=== PATIENT | female | born 1930 | race Caucasian/White ===

== ENCOUNTER 2016-11-11 13:07 | Emergency (ER) | payer MEDICARE ==
[~2016-11-11] VITALS: Ht 152.4 cm; Wt 63.5 kg
[~2016-11-11 13:07] MED LIST: ALEN1TAB2 PO; ASPI-482 PO; CHOL5POW MC; CITA20TA5 PO; DICL100G7 TP; LISI-338 PO; NAPR220T70 PO; PANT40TA5 PO; PRAV20TA2 PO; RANI150C PO
--- NOTE | 2016-11-11 13:46 | PHYS DOC ---
Adult General Chief Complaint Chief Complaint: ABDOMINAL PAIN HPI HPI Patient is a 86 year old female presents emergency Department 2-3 day history of abdominal pain, nausea, vomiting and diarrhea. Patient denies black, bloody or bilious emesis. She denies black or bloody bowel movements. She relates last by mouth intake was at 10 AM this morning. Patient states that she was able to hold this food down. Patient denies history of chronic gastrointestinal disease. She reports that she did have colon cancer in the late 90s. She reports having a bowel resection at that time with follow-on chemotherapy. She denies any known history of recurrence. Patient also has a history of amyloidosis. She states that she has not had any evidence of organ problems, particularly with her kidneys. Her primary care doctor's Dr. Bustillo. Patient denies known exposure to others with similar symptoms. She denies hospitalization, foreign travel or antibiotic use within the past 90 days. Review of Systems Review of Systems Constitutional: Denies fever or chills [] Eyes: Denies change in visual acuity, redness, or eye pain [] HENT: Denies nasal congestion or sore throat [] Respiratory: Denies cough or shortness of breath [] Cardiovascular: No additional information not addressed in HPI [] GI: Denies abdominal pain, nausea, vomiting, bloody stools or diarrhea [] : Denies dysuria or hematuria [] Musculoskeletal: Denies back pain or joint pain [] Integument: Denies rash or skin lesions [] Neurologic: Denies headache, focal weakness or sensory changes [] Endocrine: Denies polyuria or polydipsia [] Current Medications Current Medications Current Medications Medications (Trade) Dose Ordered Sig/Hayde Start Time Stop Time Status Last Admin Dose Admin Fentanyl Citrate (Fentanyl 2ml Vial) 50 mcg 1X ONCE 11/11/16 14:00 11/11/16 14:01 DC 11/11/16 14:25 50 MCG Info (Do NOT chart on this entry -- for MONITORING) 1 each PRN DAILY PRN 11/11/16 14:45 11/11/16 16:23 DC Iohexol (Omnipaque 300 Mg/ml) 75 ml 1X ONCE 11/11/16 14:45 11/11/16 14:46 DC 11/11/16 14:45 75 ML Ondansetron HCl 4 mg 4 mg 1X ONCE 11/11/16 14:00 11/11/16 14:01 DC 11/11/16 14:24 4 MG Sodium Chloride (Iv Sodium Chloride 0.9% 500ml Bag) 500 ml @ 500 mls/hr 1X ONCE 11/11/16 14:00 11/11/16 14:59 DC Allergies Allergies Allergies Coded Allergies Type Severity Reaction Last Updated Verified Sulfa (Sulfonamide Antibiotics) Allergy Intermediate LIKE BEE BITTES. STINGING 11/11/14 Yes celecoxib Allergy Intermediate IRRITATION OF SKIN. FEEL LIKE BUGS ARE CRAWLING UNDER SKIN 11/11/14 Yes warfarin Allergy Intermediate 11/11/14 Yes cephalexin Adverse Reaction Intermediate SICK 11/11/14 Yes codeine Adverse Reaction Intermediate 11/11/14 Yes ibuprofen Adverse Reaction Intermediate SICK, NAUSEA 11/11/14 Yes iron Adverse Reaction Intermediate VOMITING, STOMACHE PAINS AND SOARS 11/11/14 Yes naproxen Adverse Reaction Intermediate MAKES PT REAL SICK 11/11/14 Yes rofecoxib Adverse Reaction Intermediate REAL SICK 11/11/14 Yes tramadol Adverse Reaction Intermediate DIZZYNESS, NASEA, AND VOMITING 11/11/14 Yes Physical Exam Physical Exam Constitutional: Well developed, well nourished, no acute distress, non-toxic appearance. Very pleasant, older lady in no acute distress. HENT: Normocephalic, atraumatic, bilateral external ears normal, oropharynx moist, no oral exudates, nose normal. [] Eyes: PERRLA, EOMI, conjunctiva normal, no discharge. [] Neck: Normal range of motion, no tenderness, supple, no stridor. [] Cardiovascular:Heart rate regular rhythm, no murmur [] Lungs & Thorax: Bilateral breath sounds clear to auscultation [] Abdomen: Abdomen is soft and nondistended. There are hyperactive bowel sounds in all 4 quadrants. There is no palpable defect to the abdominal wall or pulsatile mass. There is no area of focal tenderness. There is some voluntary guarding with palpation. There is no rebound. Skin: Warm, dry, no erythema, no rash. [] Back: No tenderness, no CVA tenderness. Extremities: No tenderness, no cyanosis, no clubbing, ROM intact, no edema. [] Neurologic: Alert and oriented X 3, normal motor function, normal sensory function, no focal deficits noted. [] Psychologic: Affect normal, judgement normal, mood normal. [] Current Patient Data Vital Signs Vital Signs Date Time Temp Pulse Resp B/P Pulse Ox O2 Delivery O2 Flow Rate FiO2 11/11/16 14:25 Room Air 11/11/16 13:25 98.0 78 28 140/60 93 98.0 Lab Values Laboratory Tests Test 11/11/16 13:25 11/11/16 13:59 Urine Collection Type Unknown Urine Color Brittnee Urine Clarity Cloudy Urine pH 5.0 Urine Specific [place] >=1.030 Urine Protein 100mg/dL (NEG-TRACE) Urine Glucose (UA) Negativemg/dL (NEG) Urine Ketones (Stick) Tracemg/dL (NEG) Urine Blood Large (NEG) Urine Nitrite Negative (NEG) Urine Bilirubin Small (NEG) Urine Urobilinogen Dipstick 1.0mg/dL (0.2 mg/dL) Urine Leukocyte Esterase Small (NEG) Urine RBC 11-20/HPF (0-2) Urine WBC 11-20/HPF (0-4) Urine Squamous Epithelial Cells Mod/LPF Urine Transitional Epithelial Cells Mod/LPF Urine Bacteria Moderate/HPF (0-FEW) Urine Hyaline Casts Many/HPF Urine Granular Casts Occasional/HPF Urine Mucus Mod/LPF White Blood Count 6.0x10^3/uL (4.0-11.0) Red Blood Count 4.70x10^6/uL (3.50-5.40) Hemoglobin 14.6g/dL (12.0-15.5) Hematocrit 44.3% (36.0-47.0) Mean Corpuscular Volume 94fL (79-100) Mean Corpuscular Hemoglobin 31pg (25-35) Mean Corpuscular Hemoglobin Concent 33g/dL (31-37) Red Cell Distribution Width 13.9% (11.5-14.5) Platelet Count 223x10^3/uL (140-400) Neutrophils (%) (Auto) 66% (31-73) Lymphocytes (%) (Auto) 22% (24-48) L Monocytes (%) (Auto) 11% (0-9) H Eosinophils (%) (Auto) 1% (0-3) Basophils (%) (Auto) 0% (0-3) Neutrophils # (Auto) 4.0x10^3uL (1.8-7.7) Lymphocytes # (Auto) 1.3x10^3/uL (1.0-4.8) Monocytes # (Auto) 0.6x10^3/uL (0.0-1.1) Eosinophils # (Auto) 0.0x10^3/uL (0.0-0.7) Basophils # (Auto) 0.0x10^3/uL (0.0-0.2) Sodium Level 139mmol/L (136-145) Potassium Level 4.2mmol/L (3.5-5.1) Chloride Level 103mmol/L (98-107) Carbon Dioxide Level 26mmol/L (21-32) Anion Gap 10 (6-14) Blood Urea Nitrogen 30mg/dL (7-20) H Creatinine 1.3mg/dL (0.6-1.0) H Estimated GFR (Cockcroft-Gault) 38.9 BUN/Creatinine Ratio 23 (6-20) H Glucose Level 143mg/dL (70-99) H Calcium Level 10.1mg/dL (8.5-10.1) Total Bilirubin 1.5mg/dL (0.2-1.0) H Aspartate Amino Transferase (AST) 17U/L (15-37) Alanine Aminotransferase (ALT) 20U/L (14-59) Alkaline Phosphatase 52U/L (46-116) Total Protein 6.9g/dL (6.4-8.2) Albumin 3.6g/dL (3.4-5.0) Albumin/Globulin Ratio 1.1 (1.0-1.7) Lipase 94U/L (73-393) Laboratory Tests 11/11/16 13:59 Laboratory Tests 11/11/16 13:59 EKG EKG [] Radiology/Procedures Radiology/Procedures [facility] [address] [place], [place] [id number] IMAGING REPORT Signed PATIENT: XIANG COONEY ACCOUNT: [id number] : 1930 LOCATION: ER AGE: 86 SEX: F EXAM STATUS: REG ER ORD. PHYSICIAN: ANDREINA CARLSON REASON: diffuse abdominal pain-past hx of colon Ca PROCEDURE: CT ABD PELV W/ IV CONTRST ONLY EXAM: CT abdomen and pelvis with contrast. HISTORY: Diffuse abdominal pain, history of colon cancer status post resection and chemotherapy. TECHNIQUE: Computed tomographic images of the abdomen and pelvis following the intravenous demonstration of 60 cc of Omni 300.. Multiplanar reformatting was performed. One or more of the following individualized dose reduction techniques were utilized for this examination: 1. Automated exposure control 2. Adjustment of the mA and/or kV according to patient size 3. Use of iterative reconstruction technique COMPARISON: None. FINDINGS: Visualized lung bases are clear. A hiatal hernia is present. The liver demonstrates decreased attenuation suggestive of steatosis. No focal liver lesion is seen. The gallbladder, spleen, pancreas, adrenal glands and bilateral kidneys demonstrate no focal abnormality. An ileal bowel loop in the left abdomen is mildly dilated up to 4 cm in diameter, with gradual tapering distally and more inferiorly within the abdomen, with a transition zone seen within the lower abdomen at the midline with a trace amount of fluid suggested. No focal mass is seen. There is mild haziness within the mesentery adjacent to the dilated bowel loop. Normal enhancement of the dilated small bowel loop is maintained. No focal small bowel wall thickening is seen. Remainder of the small bowel loops appear normal in caliber, partially fluid-filled. Anastomotic suture is seen at the level of the rectosigmoid, likely site of previous resection. Remainder of the colon demonstrates no focal abnormality. Abdominal aorta remains normal in caliber with diffuse atherosclerotic calcifications. No intra-abdominal pelvic free air or significant lymphadenopathy is seen. Overlying soft tissues and visualized osseous structures demonstrate no acute or suspicious finding. Midline ventral abdominal wall scar is present, with small fat-containing hernia. Degenerative changes are present throughout the spine as well as osteopenia. IMPRESSION: A single mildly dilated ileal bowel loop is present in the left abdomen with gradual transition zone seen in the lower midline abdomen. Mild haziness of the adjacent mesentery is present. Remainder of the small bowel loops are not dilated. Findings may represent very early obstruction. DICTATED and SIGNED BY: LEWIS MOHAN MD DATE: 11/11/16 3782 CC: ANDREINA CARLSON; MEETA BOTELLO MD; NON,STAFF ~ Course & Med Decision Making Course & Med Decision Making Patient had an uneventful stay here in the emergency department. I reexamined her abdomen and found it to be nontender. She reports feeling "much better", like to go home. Her CT scan shows no evidence of inflammatory bowel condition, tumors or obstructions. Dragon Disclaimer Dragon Disclaimer This electronic medical record was generated, in whole or in part, using a voice recognition dictation system. Departure Departure Impression: Primary Impression: Gastroenteritis Disposition: 01 HOME, SELF-CARE Condition: GOOD Referrals: MEETA BOTELLO MD (PCP) Patient Instructions: Viral Gastroenteritis, [id number] Additional Instructions: 1. Review the discharge instructions provided for self-care and reasons to return to the emergency department. 2. Clear liquids for the next 24 hours, advance to soft foods after that for another 24 hours and then advance to regular diet on the third day. 3. Take the medication as prescribed. 4. Call your primary care doctor's office in the morning to schedule follow-up appointment for reevaluation by Saturday. Scripts Dicyclomine Hcl (Bentyl)10 Mg Capsule1 Cap PO TID abdominal cramping #21 CAP Ref 1 Prov:ANDREINA CARLSON 11/11/16 Ondansetron (Zofran Odt)4 Mg Tab.rapdis1 Tab SL Q8HRS NAUSEA #10 TAB Prov:ANDREINA CARLSON 11/11/16 ANDREINA CARLSON Nov 11, 2016 13:46
[2016-11-11 13:53] LABS: BILIRUBIN,URINE SMALL (NEG); GLUCOSE,URINE NEGATIVE (NEG); NITRITE,URINE NEGATIVE (NEG); PROTEIN,URINE 100 mg/dL (NEG-TRACE)
[2016-11-11] MEDS ORDERED: ONDANSETRON PF 4 MG/2 ML VIAL. IV ONE (14:00)
[2016-11-11] MEDS ORDERED: IV NORMAL SALINE 500ML BAG 500 ML IV ONE ×2 (14:00→16:00)
[2016-11-11] MEDS ORDERED: FENTANYL PF 100 MCG/2 ML VIAL. IV ONE ×2 (14:00→16:00)
[2016-11-11 14:04] LABS: BACTERIA,URINE MODERATE /HPF (0-FEW); SQUAMOUS EPITHELIAL CELL,UR MOD /LPF
[2016-11-11 14:11] VITALS: BP 125/68
[2016-11-11 14:12] LABS: BASO % 0 % (0-3); EOS % 1 % (0-3); HEMATOCRIT 44.3 % (36.0-47.0); HEMOGLOBIN 14.6 g/dL (12.0-15.5); LYMPH # 1.3 x10^3/uL (1.0-4.8); LYMPH % 22 % (24-48); MEAN CORPUSCULAR HEMOGLOBIN 31 pg (25-35); MEAN CORPUSCULAR HGB CONC 33 g/dL (31-37); MEAN CORPUSCULAR VOLUME 94 fL (79-100); MONO % 11 % (0-9); NEUT % 66 % (31-73); PLATELET COUNT 223 x10^3/uL (140-400); RED CELL DISTRIBUTION WIDTH 13.9 % (11.5-14.5)
[2016-11-11 14:14] LABS: CALCIUM 10.1 mg/dL (8.5-10.1); CREATININE 1.3 mg/dL (0.6-1.0); GFR 38.9; POTASSIUM 4.2 mmol/L (3.5-5.1)
[2016-11-11 14:20] LABS: ALBUMIN 3.6 g/dL (3.4-5.0); ALBUMIN/GLOBULIN RATIO 1.1 (1.0-1.7); TOTAL BILIRUBIN 1.5 mg/dL (0.2-1.0); TOTAL PROTEIN 6.9 g/dL (6.4-8.2)
[2016-11-11] MEDS ORDERED: IOHEXOL 300 MG/ML 75 ML VIAL IV ONE (14:45)
[2016-11-11] MEDS ORDERED: CONTRAST GIVEN MC PRN (14:45)
--- NOTE | 2016-11-11 15:16 | RAD ---
EXAM: CT abdomen and pelvis with contrast. HISTORY: Diffuse abdominal pain, history of colon cancer status post resection and chemotherapy. TECHNIQUE: Computed tomographic images of the abdomen and pelvis following the intravenous demonstration of 60 cc of Omni 300.. Multiplanar reformatting was performed. One or more of the following individualized dose reduction techniques were utilized for this examination: 1. Automated exposure control 2. Adjustment of the mA and/or kV according to patient size 3. Use of iterative reconstruction technique COMPARISON: None. FINDINGS: Visualized lung bases are clear. A hiatal hernia is present. The liver demonstrates decreased attenuation suggestive of steatosis. No focal liver lesion is seen. The gallbladder, spleen, pancreas, adrenal glands and bilateral kidneys demonstrate no focal abnormality. An ileal bowel loop in the left abdomen is mildly dilated up to 4 cm in diameter, with gradual tapering distally and more inferiorly within the abdomen, with a transition zone seen within the lower abdomen at the midline with a trace amount of fluid suggested. No focal mass is seen. There is mild haziness within the mesentery adjacent to the dilated bowel loop. Normal enhancement of the dilated small bowel loop is maintained. No focal small bowel wall thickening is seen. Remainder of the small bowel loops appear normal in caliber, partially fluid-filled. Anastomotic suture is seen at the level of the rectosigmoid, likely site of previous resection. Remainder of the colon demonstrates no focal abnormality. Abdominal aorta remains normal in caliber with diffuse atherosclerotic calcifications. No intra-abdominal pelvic free air or significant lymphadenopathy is seen. Overlying soft tissues and visualized osseous structures demonstrate no acute or suspicious finding. Midline ventral abdominal wall scar is present, with small fat-containing hernia. Degenerative changes are present throughout the spine as well as osteopenia. IMPRESSION: A single mildly dilated ileal bowel loop is present in the left abdomen with gradual transition zone seen in the lower midline abdomen. Mild haziness of the adjacent mesentery is present. Remainder of the small bowel loops are not dilated. Findings may represent very early obstruction.
[2016-11-11] MEDS ORDERED: DICY10CA53 PO (15:31)
[2016-11-11] MEDS ORDERED: ONDA4TAB10 SL (15:31)
--- NOTE | 2016-11-15 08:52 | VNOTE ---
CALL BACK NOTE CALL BACK Microbiology 11/11/16 Urine Culture - Final, Complete 11/11/16 Urine Culture Result 1 (HANH) - Final, Complete 11/11/16 Antimicrobic Susceptibility - Final, Complete Patient's urine was positive for Klebsiella pneumoniae. Patient was notified with a prescription of Augmentin called [facility] Patient is aware that the prescription is being called in. ALDO CURRIE APRN Nov 15, 2016 08:52
== END 2016-11-11 16:06 | disposition home or self-care (01) ==
LOC: ER 13:07
DX: Z88.2 Allergy status to sulfonamides (principal); Z88.8 Allergy status to other drugs, medicaments and biological substances; Z88.5 Allergy status to narcotic agent; Z88.6 Allergy status to analgesic agent; Z85.038 Personal history of other malignant neoplasm of large intestine; Z90.49 Acquired absence of other specified parts of digestive tract
CPT/HCPCS: 36415; 74177; 80053; 81001; 83690; 85027; 87086; 96374; 96375; 99285; J2405; J3010; Q9967

== ENCOUNTER → 2017-01-09 | Outpatient (CLI) | payer MEDICARE ==
[~2017-01-09] MED LIST changes: +DICL100G18 TP; -DICL100G7 TP; +DICY10CA53 PO; +ONDA4TAB10 SL
--- NOTE | 2017-01-09 14:56 | RAD ---
Ultrasound of the right upper quadrant abdomen 01/09/2017 Clinical history: Right upper quadrant abdominal pain with nausea and vomiting. Technique: A real-time ultrasound examination of the right upper quadrant of the abdomen was performed. Multiple images were obtained. Findings: Comparison is made to patient's CT scan of the abdomen dated 11/11/2016. The gallbladder is distended. No gallstones are visualized. The gallbladder wall thickness is within normal limits. No pericholecystic fluid is seen. The common bile duct measures 9 mm in diameter which is within normal limits given the patient's age. The liver is normal in size measuring 15.3 cm in length. Increased echogenicity of the liver parenchyma is seen consistent with fatty infiltration. No significant focal abnormality of the liver is noted. The visualized portions of the pancreas and right kidney are within normal limits. Impression: 1. Mild fatty infiltration of the liver. 2. Otherwise negative study.
== END | disposition home or self-care (01) ==
LOC: US 13:13
PROVIDERS: ATTEND Family Medicine
DX: R10.11 Right upper quadrant pain (principal); R14.0 Abdominal distension (gaseous)
CPT/HCPCS: 76705

== ENCOUNTER → 2017-10-03 | Outpatient (CLI) | payer MEDICARE | END | disposition home or self-care (01) | LOC: NM 11:13 | DX: E83.52 Hypercalcemia (principal); Z85.828 Personal history of other malignant neoplasm of skin | CPT/HCPCS: 78306; 96374; A9503 ==

== ENCOUNTER → 2017-10-09 | Outpatient (CLI) | payer MEDICARE ==
[2017-10-09] MEDS: GADOBUTROL 7.5 MMOL/7.5 ML VIAL IV (15:19)
== END | disposition home or self-care (01) ==
LOC: MRI 14:24
DX: R41.0 Disorientation, unspecified (principal); H74.8X3 Other specified disorders of middle ear and mastoid, bilateral
CPT/HCPCS: 70553; A9585

== ENCOUNTER 2018-03-09 17:27 | Emergency (ER) | payer MEDICARE ==
[~2018-03-09] VITALS: Ht 152.4 cm; Wt 63.5 kg
[~2018-03-09 17:27] MED LIST changes: -CITA20TA5 PO; +CITA20TA6 PO
[2018-03-09] MEDS ORDERED: IV NORMAL SALINE 1000ML BAG 1,000 ML IV ONE (18:30)
[2018-03-09 18:33] LABS: BASO % 0 % (0-3); EOS # 0.1 x10^3/uL (0.0-0.7); EOS % 1 % (0-3); HEMATOCRIT 42.6 % (36.0-47.0); LYMPH # 1.5 x10^3/uL (1.0-4.8); LYMPH % 18 % (24-48); MEAN CORPUSCULAR HEMOGLOBIN 30 pg (25-35); MEAN CORPUSCULAR HGB CONC 33 g/dL (31-37); MEAN CORPUSCULAR VOLUME 91 fL (79-100); MONO # 0.5 x10^3/uL (0.0-1.1); MONO % 5 % (0-9); NEUT # 6.5 x10^3uL (1.8-7.7); NEUT % 76 % (31-73); PLATELET COUNT 266 x10^3/uL (140-400); RED BLOOD COUNT 4.67 x10^6/uL (3.50-5.40); RED CELL DISTRIBUTION WIDTH 15.1 % (11.5-14.5); WHITE BLOOD COUNT 8.6 x10^3/uL (4.0-11.0)
[2018-03-09 18:44] LABS: CALCIUM 10.4 mg/dL (8.5-10.1); CREATININE 1.1 mg/dL (0.6-1.0)
[2018-03-09 18:50] LABS: ALBUMIN 3.3 g/dL (3.4-5.0); ALBUMIN/GLOBULIN RATIO 0.9 (1.0-1.7); TOTAL BILIRUBIN 0.9 mg/dL (0.2-1.0); TOTAL PROTEIN 6.8 g/dL (6.4-8.2)
[2018-03-09 19:33] LABS: BILIRUBIN,URINE SMALL (NEG); CLARITY,URINE TURBID; NITRITE,URINE POSITIVE (NEG); PH,URINE 5.5; PROTEIN,URINE >=300 mg/dL (NEG-TRACE); UROBILINOGEN,URINE 0.2 mg/dL (0.2 mg/dL)
[2018-03-09 19:41] LABS: COLOR,URINE DK YELLOW
[2018-03-09 19:43] LABS: BACTERIA,URINE MANY /HPF (0-FEW); RBC,URINE OCC /HPF (0-2); SQUAMOUS EPITHELIAL CELL,UR FEW /LPF
--- NOTE | 2018-03-09 19:50 | RAD ---
CT abdomen and pelvis without contrast: Reason for examination: Diffuse abdominal pain. History of diverticulosis. Comparison is made to previous study dated 11/11/2016. Helical images were obtained through the abdomen and pelvis with no intravenous or oral contrast administered. Reconstruction was performed in sagittal and coronal plane. Exposure: One or more of the following individualized dose reduction techniques were utilized for this examination: 1. Automated exposure control 2. Adjustment of the mA and/or kV according to patient size 3. Use of iterative reconstruction technique. There is a calcified granuloma present at the left lung base. No infiltrates or pleural effusions are seen seen. The heart size is normal with no pericardial effusion. No abnormality seen at the liver. The spleen shows splenic granuloma. No abnormalities are seen at the adrenal glands, gallbladder or pancreas. The abdominal aorta shows arteriosclerotic vascular calcification but no aneurysmal dilatation or dissection is seen. No abnormality seen at the inferior vena cava. There is a moderate size hiatal hernia. The small intestinal tract shows no abnormally dilated loops of bowel or thickened bowel. No abnormality seen at the appendix. The colon shows no evidence of diverticulosis or diverticulitis. There are postop changes with anastomosis at the rectosigmoid junction which is unchanged. The kidneys show no renal masses, renal calculi, hydronephrosis or evidence of obstructive uropathy. The bladder is not distended. No abnormality seen at the vaginal cuff. There is no evidence of free fluid or free air in the abdomen or pelvis. There are degenerative changes in the lower lumbar spine. No acute bony abnormalities are seen. IMPRESSION: Moderate sized hiatal hernia. Postop changes at the rectosigmoid junction. No evidence of diverticulosis or diverticulitis. No other focal abnormality seen in the abdomen or pelvis. Electronically signed by: Katey Trejo MD (03/09/2018 7:46 PM) [facility]
[2018-03-09 21:35] VITALS: BP 115/74
[2018-03-09] MEDS ORDERED: CIPR500T PO (21:38)
[2018-03-09] MEDS ORDERED: ONDA4TAB12 PO (21:38)
--- NOTE | 2018-03-09 21:38 | PHYS DOC ---
Past Medical History Past Medical History: Cancer, Other Additional Past Medical Histor: colon CA, primary amiliodosis Past Surgical History: Cancer Surgery, Hysterectomy, Knee Replacement Additional Past Surgical Histo: back, throat Alcohol Use: None Drug Use: None Adult General Chief Complaint Chief Complaint: ABDOMINAL PAIN HPI HPI Patient is a 88 year old [f__sex] who presents with [] Review of Systems Review of Systems Constitutional: Denies fever or chills [] Eyes: Denies change in visual acuity, redness, or eye pain [] HENT: Denies nasal congestion or sore throat [] Respiratory: Denies cough or shortness of breath [] Cardiovascular: No additional information not addressed in HPI [] GI: Denies abdominal pain, nausea, vomiting, bloody stools or diarrhea [] : Denies dysuria or hematuria [] Musculoskeletal: Denies back pain or joint pain [] Integument: Denies rash or skin lesions [] Neurologic: Denies headache, focal weakness or sensory changes [] Endocrine: Denies polyuria or polydipsia [] All other systems were reviewed and found to be within normal limits, except as documented in this note. Current Medications Current Medications Current Medications Medications (Trade) Dose Ordered Sig/Hayde Start Time Stop Time Status Last Admin Dose Admin Ceftriaxone Sodium 50 ml @ 100 mls/hr 1X ONCE 03/09/18 20:00 03/09/18 20:29 DC 03/09/18 20:38 100 MLS/HR Sodium Chloride 1,000 ml @ 1,000 mls/hr 1X ONCE 03/09/18 18:30 03/09/18 19:29 DC 03/09/18 19:11 1,000 MLS/HR Allergies Allergies Allergies Coded Allergies Type Severity Reaction Last Updated Verified Sulfa (Sulfonamide Antibiotics) Allergy Intermediate LIKE BEE BITTES. STINGING 11/11/14 Yes celecoxib Allergy Intermediate IRRITATION OF SKIN. FEEL LIKE BUGS ARE CRAWLING UNDER SKIN 11/11/14 Yes warfarin Allergy Intermediate 11/11/14 Yes cephalexin Adverse Reaction Intermediate SICK 11/11/14 Yes codeine Adverse Reaction Intermediate 11/11/14 Yes ibuprofen Adverse Reaction Intermediate SICK, NAUSEA 11/11/14 Yes iron Adverse Reaction Intermediate VOMITING, STOMACHE PAINS AND SOARS 11/11/14 Yes naproxen Adverse Reaction Intermediate MAKES PT REAL SICK 11/11/14 Yes rofecoxib Adverse Reaction Intermediate REAL SICK 11/11/14 Yes tramadol Adverse Reaction Intermediate DIZZYNESS, NASEA, AND VOMITING 11/11/14 Yes Uncoded Allergies Type Severity Reaction Last Updated Verified PCN Allergy Mild unsure 11/15/16 Physical Exam Physical Exam Constitutional: Well developed, well nourished, no acute distress, non-toxic appearance. [] HENT: Normocephalic, atraumatic, bilateral external ears normal, oropharynx moist, no oral exudates, nose normal. [] Eyes: PERRLA, EOMI, conjunctiva normal, no discharge. [] Neck: Normal range of motion, no tenderness, supple, no stridor. [] Cardiovascular:Heart rate regular rhythm, no murmur [] Lungs & Thorax: Bilateral breath sounds clear to auscultation [] Abdomen: Bowel sounds normal, soft, no tenderness, no masses, no pulsatile masses. [] Skin: Warm, dry, no erythema, no rash. [] Back: No tenderness, no CVA tenderness. [] Extremities: No tenderness, no cyanosis, no clubbing, ROM intact, no edema. [] Neurologic: Alert and oriented X 3, normal motor function, normal sensory function, no focal deficits noted. [] Psychologic: Affect normal, judgement normal, mood normal. [] Current Patient Data Vital Signs Vital Signs Date Time Temp Pulse Resp B/P (MAP) Pulse Ox O2 Delivery O2 Flow Rate FiO2 03/09/18 20:38 62 20 167/67 (100) 96 Room Air 03/09/18 17:45 98.4 98.4 Lab Values Laboratory Tests Test 03/09/18 17:40 03/09/18 19:20 White Blood Count 8.6 x10^3/uL (4.0-11.0) Red Blood Count 4.67 x10^6/uL (3.50-5.40) Hemoglobin 14.0 g/dL (12.0-15.5) Hematocrit 42.6 % (36.0-47.0) Mean Corpuscular Volume 91 fL (79-100) Mean Corpuscular Hemoglobin 30 pg (25-35) Mean Corpuscular Hemoglobin Concent 33 g/dL (31-37) Red Cell Distribution Width 15.1 % (11.5-14.5) H Platelet Count 266 x10^3/uL (140-400) Neutrophils (%) (Auto) 76 % (31-73) H Lymphocytes (%) (Auto) 18 % (24-48) L Monocytes (%) (Auto) 5 % (0-9) Eosinophils (%) (Auto) 1 % (0-3) Basophils (%) (Auto) 0 % (0-3) Neutrophils # (Auto) 6.5 x10^3uL (1.8-7.7) Lymphocytes # (Auto) 1.5 x10^3/uL (1.0-4.8) Monocytes # (Auto) 0.5 x10^3/uL (0.0-1.1) Eosinophils # (Auto) 0.1 x10^3/uL (0.0-0.7) Basophils # (Auto) 0.0 x10^3/uL (0.0-0.2) Sodium Level 139 mmol/L (136-145) Potassium Level 4.0 mmol/L (3.5-5.1) Chloride Level 104 mmol/L (98-107) Carbon Dioxide Level 24 mmol/L (21-32) Anion Gap 11 (6-14) Blood Urea Nitrogen 17 mg/dL (7-20) Creatinine 1.1 mg/dL (0.6-1.0) H Estimated GFR (Cockcroft-Gault) 47.0 BUN/Creatinine Ratio 15 (6-20) Glucose Level 128 mg/dL (70-99) H Calcium Level 10.4 mg/dL (8.5-10.1) H Total Bilirubin 0.9 mg/dL (0.2-1.0) Aspartate Amino Transferase (AST) 19 U/L (15-37) Alanine Aminotransferase (ALT) 25 U/L (14-59) Alkaline Phosphatase 72 U/L (46-116) Total Protein 6.8 g/dL (6.4-8.2) Albumin 3.3 g/dL (3.4-5.0) L Albumin/Globulin Ratio 0.9 (1.0-1.7) L Lipase 168 U/L (73-393) Urine Collection Type Unknown Urine Color Dk yellow Urine Clarity Turbid Urine pH 5.5 Urine Specific [place] >=1.030 Urine Protein >=300 mg/dL (NEG-TRACE) Urine Glucose (UA) Negative mg/dL (NEG) Urine Ketones (Stick) Trace mg/dL (NEG) Urine Blood Large (NEG) Urine Nitrite Positive (NEG) Urine Bilirubin Small (NEG) Urine Urobilinogen Dipstick 0.2 mg/dL (0.2 mg/dL) Urine Leukocyte Esterase Small (NEG) Urine RBC Occ /HPF (0-2) Urine WBC 11-20 /HPF (0-4) Urine Squamous Epithelial Cells Few /LPF Urine Bacteria Many /HPF (0-FEW) Urine Mucus Slight /LPF Laboratory Tests 03/09/18 17:40 Laboratory Tests 03/09/18 17:40 EKG EKG [] Radiology/Procedures Radiology/Procedures [] Course & Med Decision Making Course & Med Decision Making Pertinent Labs and Imaging studies reviewed. (See chart for details) [] Dragon Disclaimer Dragon Disclaimer This electronic medical record was generated, in whole or in part, using a voice recognition dictation system. Departure Departure Impression: Primary Impression: Gastroenteritis Additional Impression: Urinary tract infection Disposition: HOME, SELF-CARE Condition: STABLE Referrals: MIGUEL CRUZ MD (PCP) Patient Instructions: Nausea and Vomiting, [id number], Urinary Tract Infection, Child Additional Instructions: Fill your prescriptions and use as directed. Clear liquids for the first 24 hours then advance her diet as tolerated to bland foods like bananas, applesauce , rice, and toast. Avoid spicy foods, caffeine, carbonated drinks the will irritate your bladder. Follow-up with your doctor on Saturday as already scheduled. Return to the ER if your symptoms worsen. Scripts Ciprofloxacin Hcl (CIPROFLOXACIN HCL) 500 Mg Tablet 1 TAB PO BID for 7 Days, #14 TAB 0 Refills Prov: JUDITH RGEEN APRN 03/09/18 Ondansetron (ONDANSETRON ODT) 4 Mg Tab.rapdis 1 TAB PO PRN Q6-8HRS PRN for NAUSEA/VOMITING for 3 Days, #12 TAB 0 Refills Prov: JUDITH GREEN APRN 03/09/18 Problem Qualifiers Additional Impression: Urinary tract infection Urinary tract infection type: site unspecified Hematuria presence: with hematuria Qualified Codes: N39.0 - Urinary tract infection, site not specified ; R31.9 - Hematuria, unspecified JUDITH GREEN APRN Mar 09, 2018 21:38
--- NOTE | 2018-03-10 06:40 | EKG ---
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
== END 2018-03-09 21:55 | disposition home or self-care (01) ==
LOC: ER 17:27
DX: K52.9 Noninfective gastroenteritis and colitis, unspecified (principal); N39.0 Urinary tract infection, site not specified; Z90.710 Acquired absence of both cervix and uterus; Z98.890 Other specified postprocedural states; Z88.1 Allergy status to other antibiotic agents; Z88.2 Allergy status to sulfonamides; Z88.5 Allergy status to narcotic agent; Z88.6 Allergy status to analgesic agent; Z88.8 Allergy status to other drugs, medicaments and biological substances
CPT/HCPCS: 36415; 74176; 80053; 81001; 83690; 85025; 87086; 87186; 93005; 96361; 96365; 99285; J0690; J7030

== ENCOUNTER → 2018-03-14 | Outpatient (CLI) | payer MEDICARE ==
[2018-03-09 21:35] VITALS: BP 115/74
[~2018-03-14] MED LIST changes: +CIPR500T PO; +ONDA4TAB12 PO; +PERFLUTREN PROTEIN-A MICROSPHR 0.22 MG/ML 3 ML VIAL. IV PRN; +REGADENOSON 0.4 MG/5 ML DISP.SYRIN. IV ONE
--- NOTE | 2018-03-14 11:58 | CARD ---
MR#: [id number] Date of Study: 03/14/2018 Ordering Physician: GALI HENSON, Referring Physician: GALI HENSON, Tech: Deirdre Esetban SHAYLA APPROVED REPORT EXAM: Two-dimensional and M-mode echocardiogram with Doppler and color Doppler. Other Information Quality : Good INDICATION Murmur 2D DIMENSIONS RVDd2.5 (2.9-3.5cm)Left Atrium(2D)4.1 (1.6-4.0cm) IVSd0.9 (0.7-1.1cm)Aortic Root(2D)2.9 (2.0-3.7cm) LVDd4.9 (3.9-5.9cm)LVOT Diameter2.0 (1.8-2.4cm) PWd1.0 (0.7-1.1cm)LVDs3.2 (2.5-4.0cm) FS (%) 34.6 %SV70.7 ml LVEF(%)60.0 (>50%) Aortic Valve AoV Peak Robby.116.7cm/sAoV VTI27.3cm AO Peak GR.5.4mmHgLVOT VTI 21.95cm AO Mean GR.3mmHgAVA (VTI)2.60cm2 AI P 1/2 Uhmx211on Mitral Valve MV E Orkzefvw95.1cm/sMV DECEL KSRW002zd MV A Jmunlmjr69.2cm/sE/A Ratio0.6 TDI Lateral E' P. V3.86cm/sMedial E' P. V4.25cm/s E/Lateral E'11.9E/Medial E'10.8 Tricuspid Valve TR P. Tbofnllz512oc/sRAP MYBIAPYO7dqSr TR Peak Gr.73dhKbUNDS49keBv Pulmonary Vein S1 Buksbbld47.2cm/sS2 Ntvkhaxv69.65cm/s D2 Anilqcvo37.6cm/s LEFT VENTRICLE The left ventricle is normal size. There is normal left ventricular wall thickness. The left ventricu lar systolic function is normal and the ejection fraction is within normal range. The Ejection Fracti on is 55-60%. There is normal LV segmental wall motion. Transmitral Doppler flow pattern is Grade I-a bnormal relaxation pattern. RIGHT VENTRICLE The right ventricle is normal size. The right ventricular systolic function is normal. ATRIA The left atrium is mildly dilated. The right atrium size is normal. The interatrial septum is intact with no evidence for an atrial septal defect or patent foramen ovale as noted on 2-D or Doppler imagi ng. AORTIC VALVE The aortic valve is calcified but opens well. Doppler and Color Flow revealed mild aortic regurgitati on. There is no significant aortic valvular stenosis. MITRAL VALVE The mitral valve is calcified but opens well. There is no evidence of mitral valve prolapse. There is no mitral valve stenosis. Doppler and Color-flow revealed trace to mild mitral regurgitation. TRICUSPID VALVE The tricuspid valve is normal in structure and function. Doppler and Color Flow revealed trace tricus pid regurgitation. The PA pressure was estimated at 29 mmHg. There is no tricuspid valve stenosis. PULMONIC VALVE The pulmonic valve is not well visualized. Doppler and Color Flow revealed trace to mild pulmonic lilli vular regurgitation. There is no pulmonic valvular stenosis. GREAT VESSELS The aortic root is normal in size. The ascending aorta is normal in size. The IVC is normal in size a nd collapses >50% with inspiration. PERICARDIAL EFFUSION There is no evidence of significant pericardial effusion. Critical Notification Critical Value: No <Conclusion> The left ventricular systolic function is normal and the ejection fraction is within normal range. Th e Ejection Fraction is 55-60%. There is normal LV segmental wall motion. Doppler and Color Flow revealed mild aortic regurgitation. Signed by : Alexander Crenshaw, Electronically Approved : 03/14/2018 11:57:12
--- NOTE | 2018-03-14 13:30 | RAD ---
MR#: [id number] Date of Study: 03/14/2018 Ordering Physician: GALI HENSON, Referring Physician: ALEJANDRA WHITING Tech: KAREEN Storey APPROVED REPORT Test Type: Pharmacological Stress Nurse/Tech: Daisy Ochoa R.N. 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 Informed consent was witnessed. Augustus eout was entered into [employer]. History and Stress Test performed by KAREEN Storey Pharm. Details Pharmacologic stress testing was performed using 0.4mg per 5ml of regadenoson given intravenously ove r 7-10 seconds. Stress Symptoms No chest pain or symptoms. POST EXERCISE Reason for Termination: Infusion complete Target HR: No Max HR: 64 bpm Max Blood Pressure: 173/60mmHg Chest Pain: No. Arrhythmia: No. ST Change: No. INTERPRETATION Stress EKG Conclusion: Baseline EKG showed sinus rhythm. No ischemic changes at peak stress. No arr hythmias. Imaging Protocol IMAGE PROTOCOL: Rest Tc-99m/stress Tc-99m 1 day Rest: Stress: Viability: Radiopharm.Tc99m RtihsnokzMe78u Sestamibi Dose11.3mCi 33.3mCi Duration 17min. 12min. Img Date 03/14/2018 03/14/2018 Inj-Img Ybuf46nmy. 60min. Rest Admin Site:IV - Right WristAdministrator:KAREEN Storey Stress Admin Site: IV - Right WristAdministrator: KAREEN Storey STRESS DATA End Diast. Vol.94.0mlLVEDV index BSA58.0ml End Syst. Vol.35.0mlLVESV index BSA22.0ml Myocardial Trjl811.0gEject. Ucatkmjg47.0% Stress Scores Regional WT1.00Summed WT1.00 Regional WM0.00Summed WM10.00 Study quality was good. Left Ventricular size was Normal at Rest and Stress. Lung uptake was Normal. Left Ventricular ejection fraction is 63%. The rest and stress images show normal perfusion, normal contraction and thickening. LV Perf. Quant 17 Seg. SSS1.00 17 Seg. SRS0.00 17 Seg. SDS1.00 Stress Defect Extent (% LAD)0.00Rest Defect Extent (% LAD)0.00Rev. Defect Extent (% LAD)0.00 Stress Defect Extent (% LCX) 8.80Rest Defect Extent (% LCX)5.00Rev. Defect Extent (% LCX)1.30 Stress Defect Extent (% RCA)0.00Rest Defect Extent (% RCA)0.00Rev. Defect Extent (% RCA)0.00 Stress Defect Extent (% QUETA)2.80Rest Defect Extent (% QUETA)1.10Rev. Defect Extent (% QUETA)0.20 Conclusion 1. Regadenoson cardioisotope stress test did not show any evidence of ischemia or infarct. 2. Normal left ventricular systolic function with ejection fraction calculated at 63%. 3. Low risk for cardiac events. Signed by : Juan Cespedes, Electronically Approved : 03/14/2018 13:28:31
== END | disposition home or self-care (01) ==
LOC: NM 14:08
PROVIDERS: ATTEND Internal Medicine Cardiovascular Disease
DX: I35.1 Nonrheumatic aortic (valve) insufficiency (principal); R53.83 Other fatigue; Z90.49 Acquired absence of other specified parts of digestive tract
CPT/HCPCS: 78452; 93017; 93306; 96374; 96375; 96376; A9500; J2785

== ENCOUNTER 2018-09-13 13:27 | Emergency (ER) | payer MEDICARE ==
[~2018-09-13] VITALS: Ht 172.7 cm; Wt 63.5 kg
[~2018-09-13 13:27] MED LIST changes: -PERFLUTREN PROTEIN-A MICROSPHR 0.22 MG/ML 3 ML VIAL. IV PRN; -REGADENOSON 0.4 MG/5 ML DISP.SYRIN. IV ONE
[2018-09-13 15:00] VITALS: BP 144/65
[2018-09-13] MEDS ORDERED: BUTA1TAB23 PO (15:34)
--- NOTE | 2018-09-13 15:34 | PHYS DOC ---
Past Medical History Past Medical History: Cancer, Other Additional Past Medical Histor: colon CA, primary amiliodosis Past Surgical History: Cancer Surgery, Hysterectomy, Knee Replacement Additional Past Surgical Histo: back, throat Smoking: Quit Greater Than 1 Year Alcohol Use: None Drug Use: None Adult General Chief Complaint Chief Complaint: HEADACHE HPI HPI 88 y/o female presents with report of headache x 5 days. Reports started after accidentally rolling out of bed on 09/08/18 at 0900. Reports she got "too close to the edge" and just fell. Reports striking the right side of her head on the nightstand. Denies LOC. Reports some associated neck pain. Reports she had some nausea and vomiting which started on 09/09/18. Reports N/V currently resolved. Reports use of 81mg ASA daily. Denies other blood thinners. Review of Systems Review of Systems Constitutional: Denies fever or chills [] Eyes: Denies change in visual acuity, redness, or eye pain [] HENT: Denies nasal congestion or epistaxis Respiratory: Denies cough or shortness of breath [] Cardiovascular: Denies chest pain or palpitations GI: Denies abdominal pain or diarrhea; reports nausea and vomiting : Denies dysuria or hematuria [] Musculoskeletal: Denies back pain; reports neck pain Integument: Denies rash or laceration; reports head contusion Neurologic: Reports headache; denies focal weakness or sensory changes [] Complete systems were reviewed and found to be within normal limits, except as documented in this note. Current Medications Current Medications Current Medications Medications (Trade) Dose Ordered Sig/Hayde Start Time Stop Time Status Last Admin Dose Admin Acetaminophen/ Butalbital/ Caffeine (Fioricet) 2 tab 1X ONCE 09/13/18 16:00 09/13/18 16:02 DC 09/13/18 15:47 2 TAB Allergies Allergies Allergies Coded Allergies Type Severity Reaction Last Updated Verified Sulfa (Sulfonamide Antibiotics) Allergy Intermediate LIKE BEE BITTES. STINGING 11/11/14 Yes celecoxib Allergy Intermediate IRRITATION OF SKIN. FEEL LIKE BUGS ARE CRAWLING UNDER SKIN 11/11/14 Yes warfarin Allergy Intermediate 11/11/14 Yes cephalexin Adverse Reaction Intermediate SICK 11/11/14 Yes codeine Adverse Reaction Intermediate 11/11/14 Yes ibuprofen Adverse Reaction Intermediate SICK, NAUSEA 11/11/14 Yes iron Adverse Reaction Intermediate VOMITING, STOMACHE PAINS AND SOARS 11/11/14 Yes naproxen Adverse Reaction Intermediate MAKES PT REAL SICK 11/11/14 Yes rofecoxib Adverse Reaction Intermediate REAL SICK 11/11/14 Yes tramadol Adverse Reaction Intermediate DIZZYNESS, NASEA, AND VOMITING 11/11/14 Yes Uncoded Allergies Type Severity Reaction Last Updated Verified PCN Allergy Mild unsure 11/15/16 Physical Exam Physical Exam Constitutional: Well developed, well nourished, no acute distress, non-toxic appearance. [] HENT: Normocephalic, atraumatic, bilateral TMs normal, oropharynx moist Eyes: PERRL, EOMI, conjunctiva normal, no discharge. [] Neck: Normal range of motion, no midline tenderness, right paraspinal tenderness noted Cardiovascular: Heart rate regular rhythm Lungs & Thorax: Bilateral breath sounds clear to auscultation [] Abdomen: Soft, no tenderness, pelvis stable and nontender Skin: Warm, dry, no erythema Back: No midline tenderness, no CVA tenderness. [] Extremities: No tenderness, no deformity, ROM intact Neurologic: Alert and oriented X 3, normal motor function, normal sensory function, no focal deficits noted. [] Psychologic: Affect normal, judgement normal, mood normal. [] Current Patient Data Vital Signs EKG EKG @1413 NSR at 62bpm, NO ST elevation, incomplete RBBB, nonspecific t wave inversion V1-V2 Radiology/Procedures Radiology/Procedures PROCEDURE: CT HEAD AND CERVICAL SPINE WO Examination: CT HEAD AND CERVICAL SPINE WO History: head/neck pain after fall Comparison/Correlation: None Findings: Axial images of the head and cervical spine were obtained without contrast. Sagittal and coronal reformatted images of the cervical spine were obtained. Ventricles are normal size. Atrophy is present. 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 No midline shift or mass effect. Postoperative cervical spine fusion is noted with plate and screws from C4 to C6. Intervertebral disc spacer material at C3-4 and C4-5 noted. Alignment is normal. Significant disc space narrowing at C2-3 and C5-6 evident. Severe neural foraminal stenosis due to bony encroachment is evident at C5-6 bilaterally. No fracture or malalignment. Soft tissues of neck are unremarkable. Visualized lung apices are unremarkable. Impression: No intracranial hemorrhage. No fracture or bony destruction. Degenerative changes of the cervical spine. Postoperative findings. PQRS Compliance Statement: One or more of the following individualized dose reduction techniques were utilized for this examination: 1. Automated exposure control 2. Adjustment of the mA and/or kV according to patient size 3. Use of iterative reconstruction technique Electronically signed by: Isaac Ingram MD (09/13/2018 4:05 PM) [facility] Course & Med Decision Making Course & Med Decision Making Pertinent Labs and Imaging studies reviewed. (See chart for details) Elderly patient presents with report of continued headache s/p blunt head trauma after accidentally rolling out of bed on 09/08/18. Reports use of 81mg ASA. Patient neurologically intact. NO clinical signs of skull fracture. NO midline cervical spine tenderness. CT head/cervical spine negative for acute process. EKG and orthostatic VS stable. Symptomatic treatment provided with interval im provement. Patient stable for discharge home with outpatient follow-up with PCP. Discussed findings and plan with patient and family, who acknowledge understanding and agreement. Dragon Disclaimer Dragon Disclaimer This electronic medical record was generated, in whole or in part, using a voice recognition dictation system. Departure Departure Impression: Primary Impression: Fall Additional Impressions: Head contusion Headache Cervical muscle strain Disposition: HOME, SELF-CARE Condition: STABLE Referrals: MIGUEL CRUZ MD (PCP) Patient Instructions: Cervical Strain and Sprain with Rehab-SportsMed, Head Injury, Adult, Gxqo-yc-Bxjc Scripts Orphenadrine Citrate (ORPHENADRINE CITRATE) 100 Mg Tablet.er 1 TAB PO BID PRN for MUSCLE PAIN, #14 TAB 0 Refills Prov: WAGNER CONN DO 09/13/18 Butalb/Acetaminophen/Caffeine (OGMEYK-PDMSIMCC-YBXR 50-325-40) 1 Each Tablet 1 EACH PO Q6HRS PRN for HEADACHE, #14 TAB Prov: WAGNER CONN DO 09/13/18 Problem Qualifiers Primary Impression: Fall Encounter type: initial encounter Qualified Codes: W19.XXXA - Unspecified fall, initial encounter Additional Impressions: Head contusion Encounter type: initial encounter Contusion of head detail: scalp Qualified Codes: S00.03XA - Contusion of scalp, initial encounter Headache Headache type: unspecified Headache chronicity pattern: acute headache Intractability: intractable Qualified Codes: R51 - Headache Cervical muscle strain Encounter type: initial encounter Qualified Codes: S16.1XXA - Strain of muscle, fascia and tendon at neck level, initial encounter WAGNER CONN DO Sep 13, 2018 15:34
[2018-09-13] MEDS ORDERED: BUTALB/APAP/CAFEIN 50/325/40MG TABLET. PO ONE (16:00)
--- NOTE | 2018-09-13 16:08 | RAD ---
Examination: CT HEAD AND CERVICAL SPINE WO History: head/neck pain after fall Comparison/Correlation: None Findings: Axial images of the head and cervical spine were obtained without contrast. Sagittal and coronal reformatted images of the cervical spine were obtained. Ventricles are normal size. Atrophy is present. 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 No midline shift or mass effect. Postoperative cervical spine fusion is noted with plate and screws from C4 to C6. Intervertebral disc spacer material at C3-4 and C4-5 noted. Alignment is normal. Significant disc space narrowing at C2-3 and C5-6 evident. Severe neural foraminal stenosis due to bony encroachment is evident at C5-6 bilaterally. No fracture or malalignment. Soft tissues of neck are unremarkable. Visualized lung apices are unremarkable. Impression: No intracranial hemorrhage. No fracture or bony destruction. Degenerative changes of the cervical spine. Postoperative findings. PQRS Compliance Statement: One or more of the following individualized dose reduction techniques were utilized for this examination: 1. Automated exposure control 2. Adjustment of the mA and/or kV according to patient size 3. Use of iterative reconstruction technique Electronically signed by: Isaac Ingram MD (09/13/2018 4:05 PM) [facility]
[2018-09-13] MEDS ORDERED: ORPH100T PO (16:19)
--- NOTE | 2018-09-15 13:55 | EKG ---
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
== END 2018-09-13 17:23 | disposition home or self-care (01) ==
LOC: ER 13:27
DX: S16.1XXA Strain of muscle, fascia and tendon at neck level, initial encounter (principal); S00.03XA Contusion of scalp, initial encounter; R51 Headache; I45.10 Unspecified right bundle-branch block; Z88.1 Allergy status to other antibiotic agents; Z88.2 Allergy status to sulfonamides; Z88.6 Allergy status to analgesic agent; Z88.5 Allergy status to narcotic agent; Z88.8 Allergy status to other drugs, medicaments and biological substances; W06.XXXA Fall from bed, initial encounter; Y93.89 Activity, other specified; Y92.89 Other specified places as the place of occurrence of the external cause; Y99.8 Other external cause status
CPT/HCPCS: 70450; 72125; 93005; 99284-25

== ENCOUNTER 2018-12-08 12:04 | Emergency (ER) | payer MEDICARE ==
[~2018-12-08] VITALS: Ht 157.5 cm; Wt 63.5 kg
[~2018-12-08 12:04] MED LIST changes: +BUTA1TAB23 PO; +ORPH100T PO
[2018-12-08 12:55] VITALS: BP 140/63
--- NOTE | 2018-12-08 13:19 | PHYS DOC ---
Past Medical History Past Medical History: Cancer, Other Additional Past Medical Histor: colon CA, primary amiliodosis Past Surgical History: Cancer Surgery, Hysterectomy, Knee Replacement Additional Past Surgical Histo: back, throat Alcohol Use: None Drug Use: None Adult General Chief Complaint Chief Complaint: HIP PAIN [facility] HPI Patient is a 88 year old female presents to ED complaining of trip and fall times one day ago. Patient states she was leaving [place] and tripped and fell injuring her right ankle and right hip. Describes the pain as sharp. Rates the pain as 6 out of 10. Patient able to ambulate without assistance. Denies use of blood thinners, head/neck injury, LOC, vision changes, nausea/vomiting, dizziness, weakness or symptoms prior to fall. Review of Systems Review of Systems Constitutional: Denies fever or chills [] Eyes: Denies change in visual acuity, redness, or eye pain [] HENT: Denies nasal congestion or sore throat [] Respiratory: Denies cough or shortness of breath [] Cardiovascular: No additional information not addressed in HPI [] GI: Denies abdominal pain, nausea, vomiting, bloody stools or diarrhea [] : Denies dysuria or hematuria [] Musculoskeletal: Complains of ankle and right hip pain. Denies back pain. Integument: Denies rash or skin lesions [] Neurologic: Denies headache, focal weakness or sensory changes [] All other systems were reviewed and found to be within normal limits, except as documented in this note. Allergies Allergies Allergies Coded Allergies Type Severity Reaction Last Updated Verified Sulfa (Sulfonamide Antibiotics) Allergy Intermediate LIKE BEE BITTES. STINGING 11/11/14 Yes celecoxib Allergy Intermediate IRRITATION OF SKIN. FEEL LIKE BUGS ARE CRAWLING UNDER SKIN 11/11/14 Yes warfarin Allergy Intermediate 11/11/14 Yes cephalexin Adverse Reaction Intermediate SICK 11/11/14 Yes codeine Adverse Reaction Intermediate 11/11/14 Yes ibuprofen Adverse Reaction Intermediate SICK, NAUSEA 11/11/14 Yes iron Adverse Reaction Intermediate VOMITING, STOMACHE PAINS AND SOARS 11/11/14 Yes naproxen Adverse Reaction Intermediate MAKES PT REAL SICK 11/11/14 Yes rofecoxib Adverse Reaction Intermediate REAL SICK 11/11/14 Yes tramadol Adverse Reaction Intermediate DIZZYNESS, NASEA, AND VOMITING 11/11/14 Yes Uncoded Allergies Type Severity Reaction Last Updated Verified PCN Allergy Mild unsure 11/15/16 Physical Exam Physical Exam Constitutional: Well developed, well nourished, no acute distress, non-toxic appearance. [] HENT: Normocephalic, atraumatic Eyes: PERRLA, EOMI, conjunctiva normal, no discharge. [] Neck: Normal range of motion, no tenderness, supple, no stridor. [] Cardiovascular:Heart rate regular rhythm, no murmur [] Lungs & Thorax: Bilateral breath sounds clear to auscultation [] Abdomen: Bowel sounds normal, soft, no tenderness, no masses, no pulsatile masses. [] Skin: Warm, dry, no erythema, no rash. [] Back: No tenderness, no CVA tenderness. [] Extremities: mild right lateral hip and right ankle tenderness, no cyanosis, no clubbing, ROM intact, no edema. NV intact.[] Neurologic: Alert and oriented X 3, normal motor function, normal sensory function, no focal deficits noted. [] Psychologic: Affect normal, judgement normal, mood normal. [] Current Patient Data Vital Signs Vital Signs Date Time Temp Pulse Resp B/P (MAP) Pulse Ox O2 Delivery O2 Flow Rate FiO2 12/08/18 12:55 98.0 65 22 140/63 (88) 98 Room Air 98.0 EKG EKG [] Radiology/Procedures Radiology/Procedures PROCEDURE: HIP RIGHT 2V WITH PELVIS Examination: 2 views of the right hip with frontal view the pelvis and 3 views of the right ankle HISTORY: History of fall, pain COMPARISON: None available. The bilateral femoral heads within the acetabula. Moderate joint space loss identified in the bilateral hip joint likely degeneration. There is no obvious acute fracture or dislocation identified. Examination limited osseous demineralization. The ankle mortise appears unremarkable. Mild joint space loss ankle mortise. IMPRESSION: 1. No acute osseous findings. 2. Moderate degenerative changes bilateral hip joints. Mild degenerative changes ankle joint. [] Course & Med Decision Making Course & Med Decision Making Pertinent Labs and Imaging studies reviewed. (See chart for details) []Discussed imaging findings with patient. Patient's pain improved. States she's feeling much better. Patient able to family without assistance. No focal neural deficits. Discussed symptomatic treatment and follow-up with orthopedics if pain persists. Provided contact information/education. Discussed reasons to return to the ED. Patient understands and agrees with plan. Dragon Disclaimer Dragon Disclaimer This electronic medical record was generated, in whole or in part, using a voice recognition dictation system. Departure Departure Impression: Primary Impression: Hip sprain Additional Impression: Ankle sprain Disposition: HOME, SELF-CARE Condition: IMPROVED Referrals: MIGUEL CRUZ MD (PCP) LYNDA MITCHELL II, MD Patient Instructions: Ankle Sprain, Hip Injury Problem Qualifiers RASHIDA HERRERA December 08, 2018 13:19
--- NOTE | 2018-12-08 13:48 | RAD ---
Examination: 2 views of the right hip with frontal view the pelvis and 3 views of the right ankle HISTORY: History of fall, pain COMPARISON: None available. The bilateral femoral heads within the acetabula. Moderate joint space loss identified in the bilateral hip joint likely degeneration. There is no obvious acute fracture or dislocation identified. Examination limited osseous demineralization. The ankle mortise appears unremarkable. Mild joint space loss ankle mortise. IMPRESSION: 1. No acute osseous findings. 2. Moderate degenerative changes bilateral hip joints. Mild degenerative changes ankle joint. Electronically signed by: Miguel Angel Killian MD (12/08/2018 1:44 PM) [place] [id number]
== END 2018-12-08 14:11 | disposition home or self-care (01) ==
LOC: ER 12:04
DX: S73.101A Unspecified sprain of right hip, initial encounter (principal); S93.401A Sprain of unspecified ligament of right ankle, initial encounter; Z88.2 Allergy status to sulfonamides; Z88.1 Allergy status to other antibiotic agents; Z88.5 Allergy status to narcotic agent; Z88.8 Allergy status to other drugs, medicaments and biological substances; Z88.6 Allergy status to analgesic agent; W01.0XXA Fall on same level from slipping, tripping and stumbling without subsequent striking against object, initial encounter; Y93.89 Activity, other specified; Y92.89 Other specified places as the place of occurrence of the external cause; Y99.8 Other external cause status
CPT/HCPCS: 73502; 73610; 99284

== ENCOUNTER → 2019-08-18 | Outpatient (CLI) | payer MEDICARE ==
[~2019-08-18] MED LIST changes: -PANT40TA5 PO; +PANT40TA77 PO
--- NOTE | 2019-08-19 08:17 | RAD ---
MR#: [id number] Date of Study: 08/18/2019 Ordering Physician: GALI HENSON, Referring Physician: GALI HENSON, Tech: Enzo Manuel MBA, RDMS, RVT, RDCS, RTR APPROVED REPORT Patient Location : OUT-PATIENT Indications Lower Extremity Edema : Bilateral Greater Saphenous Veins (GSV) Significant venous relux noted in the LEFT GSV at the following levels : Proximal Thigh, Mid Thigh, D istal Thigh, Proximal Calf, Mid Calf, Distal Calf Findings Grayscale images of the bilateral saphenofemoral junctions are grossly unremarkable. On the left side the great saphenous vein measures 4.1 mm and has a maximum reflux time of 3.2 second s. The right great saphenous vein measures 5 mm and does not show any evidence of reflux. The bilateral lesser saphenous veins do not show any evidence of reflux. Critical Notification Critical Value: No <Conclusion> 1. Positive for reflux in the left greater saphenous vein only on this study. Signed by : Alexander Crenshaw, Electronically Approved : 08/19/2019 08:16:53
--- NOTE | 2019-08-19 08:19 | RAD ---
MR#: [id number] Date of Study: 08/18/2019 Ordering Physician: GALI HENSON, Referring Physician: GALI HENSON, Tech: Enzo Manuel MBA, RDMS, RVT, RDCS, RTR APPROVED REPORT Bilateral Lower Extremity Venous Study for DVT Patient Location: OUT-PATIENT Indications Lower Extremity Edema: Bilateral Vein Imaging (Right) CFV (R): Compressible SFJ (R): Compressible FEM (R): Compressible POP (R): Compressible DFV (R): Spontaneous PTV (R): Spontaneous GSV (R): Spontaneous Peroneals (R): Spontaneous Vein Imaging (Left) CFV (L): Compressible SFJ (L): Compressible FEM (L): Compressible POP (L): Compressible DFV (L): Spontaneous PTV (L): Spontaneous GSV (L): Spontaneous Peroneals (L): Spontaneous Doppler Evaluation (Right) CFV (R): Spontaneous POP (R):Spontaneous Doppler Evaluation (Left) CFV (L):Spontaneous POP (L):Spontaneous Findings The bilateral lower extremity deep veins were evaluated for thrombus with color Doppler, spectral and grayscale images. On the right the grayscale images of the common femoral, superficial femoral and popliteal veins do n ot demonstrate any evidence of thrombus and these veins appear to be compressible. The below-knee vei ns were not well visualized but grossly appear to be compressible. Spectral imaging and color Doppler do not reveal any evidence of obstruction to flow with normal respirophasic variation above the knee . Below the knee there is spontaneous flow noted. On the left, the grayscale images of the common femoral, superficial femoral and popliteal veins do n ot demonstrate any evidence of thrombus and these veins appear to be compressible. The below-knee vei ns again were not well visualized but grossly appear to be compressible. Spectral imaging and color D oppler do not reveal any evidence of obstruction to flow with normal respirophasic variation above th e knee. The below-knee veins demonstrate spontaneous flow. Incidental note is made of a popliteal fossa Deras's cyst measuring a proximally 5.5 x 1.2 cm. Critical Notification Critical Value: No <Conclusion> 1. No evidence of DVT in the bilateral lower extremity deep veins. Signed by : Alexander Crenshaw, Electronically Approved : 08/19/2019 08:18:33
== END | disposition home or self-care (01) ==
LOC: US 15:56
PROVIDERS: ATTEND Internal Medicine Cardiovascular Disease
DX: M79.89 Other specified soft tissue disorders (principal); M71.22 Synovial cyst of popliteal space [Baker], left knee
CPT/HCPCS: 93970

== ENCOUNTER 2019-09-17 11:30 | Emergency (ER) | payer MEDICARE ==
[~2019-09-17] VITALS: Ht 152.4 cm; Wt 63.1 kg
--- NOTE | 2019-09-17 11:51 | PHYS DOC ---
Past Medical History Past Medical History: Cancer, Other Additional Past Medical Histor: colon CA, primary amiliodosis Past Surgical History: Cancer Surgery, Hysterectomy, Knee Replacement Additional Past Surgical Histo: back, throat Smoking Status: Former Smoker Alcohol Use: None Drug Use: None Adult General Chief Complaint Chief Complaint: LOWER EXTREMITY SWELLING [facility] Patient is a 89 year old female who presents with complaint of increasing lower extremity swelling 2-3 days duration. She reports a history of lower extremity edema and takes Lasix when necessary for this which she has been doing over the past 2 days. She admits to some increasing shortness of breath with exertion over the past 2 days as well. The patient had a lower extremity ultrasound performed on August 18 which was unremarkable; this was performed due to lower extremity swelling. She also had an echocardiogram done in 2018 which showed a normal ejection fraction and she follows along with cardiology but she cannot tell me why. She has no documented cardiac disease. She denies fever or chills recently. No chest pain reported. Review of Systems Review of Systems All other ROS is negative unless otherwise stated in HPI Allergies Allergies Allergies Coded Allergies Type Severity Reaction Last Updated Verified Sulfa (Sulfonamide Antibiotics) Allergy Intermediate LIKE BEE BITTES. STINGING 11/11/14 Yes celecoxib Allergy Intermediate IRRITATION OF SKIN. FEEL LIKE BUGS ARE CRAWLING UNDER SKIN 11/11/14 Yes warfarin Allergy Intermediate 11/11/14 Yes cephalexin Adverse Reaction Intermediate SICK 11/11/14 Yes codeine Adverse Reaction Intermediate 11/11/14 Yes ibuprofen Adverse Reaction Intermediate SICK, NAUSEA 11/11/14 Yes iron Adverse Reaction Intermediate VOMITING, STOMACHE PAINS AND SOARS 11/11/14 Yes naproxen Adverse Reaction Intermediate MAKES PT REAL SICK 11/11/14 Yes rofecoxib Adverse Reaction Intermediate REAL SICK 11/11/14 Yes tramadol Adverse Reaction Intermediate DIZZYNESS, NASEA, AND VOMITING 11/11/14 Yes Uncoded Allergies Type Severity Reaction Last Updated Verified PCN Allergy Mild unsure 11/15/16 Physical Exam Physical Exam See above Constitutional: Well developed, well nourished, no acute distress, non-toxic appearance. [] HENT: Normocephalic, atraumatic, bilateral external ears normal, oropharynx moist, no oral exudates, nose normal. [] Eyes: PERRLA, EOMI, conjunctiva normal, no discharge. [] Neck: Normal range of motion, no tenderness, supple, no stridor. [] Cardiovascular:Heart rate regular rhythm, no murmur [] Lungs & Thorax: Bilateral breath sounds clear to auscultation [] Abdomen: Bowel sounds normal, soft, no tenderness, no masses, no pulsatile masses. [] Skin: Warm, dry, no erythema, no rash. [] Back: No tenderness, no CVA tenderness. [] Extremities: No tenderness, no cyanosis, no clubbing, ROM intact, 1+ bilateral lower extremity edema Neurologic: Alert and oriented X 3, normal motor function, normal sensory function, no focal deficits noted. [] Psychologic: Affect normal, judgement normal, mood normal. [] Current Patient Data Vital Signs Vital Signs Date Time Temp Pulse Resp B/P (MAP) Pulse Ox O2 Delivery O2 Flow Rate FiO2 09/17/19 12:43 60 141/63 (89) 96 Room Air 09/17/19 11:37 98.5 19 98.5 Lab Values Laboratory Tests Test 09/17/19 11:50 09/17/19 13:23 White Blood Count 5.3 x10^3/uL (4.0-11.0) Red Blood Count 4.60 x10^6/uL (3.50-5.40) Hemoglobin 13.4 g/dL (12.0-15.5) Hematocrit 41.2 % (36.0-47.0) Mean Corpuscular Volume 90 fL (79-100) Mean Corpuscular Hemoglobin 29 pg (25-35) Mean Corpuscular Hemoglobin Concent 33 g/dL (31-37) Red Cell Distribution Width 16.6 % (11.5-14.5) H Platelet Count 321 x10^3/uL (140-400) Neutrophils (%) (Auto) 54 % (31-73) Lymphocytes (%) (Auto) 36 % (24-48) Monocytes (%) (Auto) 6 % (0-9) Eosinophils (%) (Auto) 3 % (0-3) Basophils (%) (Auto) 1 % (0-3) Neutrophils # (Auto) 2.9 x10^3/uL (1.8-7.7) Lymphocytes # (Auto) 1.9 x10^3/uL (1.0-4.8) Monocytes # (Auto) 0.3 x10^3/uL (0.0-1.1) Eosinophils # (Auto) 0.2 x10^3/uL (0.0-0.7) Basophils # (Auto) 0.1 x10^3/uL (0.0-0.2) Sodium Level 141 mmol/L (136-145) Potassium Level 3.9 mmol/L (3.5-5.1) Chloride Level 104 mmol/L (98-107) Carbon Dioxide Level 28 mmol/L (21-32) Anion Gap 9 (6-14) Blood Urea Nitrogen 20 mg/dL (7-20) Creatinine 1.2 mg/dL (0.6-1.0) H Estimated GFR (Cockcroft-Gault) 42.4 Glucose Level 159 mg/dL (70-99) H Calcium Level 9.5 mg/dL (8.5-10.1) Troponin I Quantitative < 0.017 ng/mL (0.000-0.055) EM-Atv-D-Type Natriuretic Peptide 411 pg/mL (0-449) Urine Collection Type Unknown Urine Color Yellow Urine Clarity Clear Urine pH 6.5 Urine Specific [place] 1.020 Urine Protein >=300 mg/dL (NEG-TRACE) Urine Glucose (UA) Negative mg/dL (NEG) Urine Ketones (Stick) Negative mg/dL (NEG) Urine Blood Moderate (NEG) Urine Nitrite Positive (NEG) Urine Bilirubin Negative (NEG) Urine Urobilinogen Dipstick 0.2 mg/dL (0.2 mg/dL) Urine Leukocyte Esterase Small (NEG) Urine RBC 6-10 /HPF (0-2) Urine WBC >40 /HPF (0-4) Urine Squamous Epithelial Cells Mod /LPF Urine Bacteria Many /HPF (0-FEW) Urine Hyaline Casts Many /HPF Laboratory Tests 09/17/19 11:50 Laboratory Tests 09/17/19 11:50 EKG EKG []EKG shows a regular rhythm with no ST changes and normal intervals. Radiology/Procedures Radiology/Procedures CHEST AP ONLY Clinical Indication: Lower extremity edema Comparison: None. Findings: Portable upright frontal view of the chest was obtained. The cardiomediastinal silhouette is normal. Lungs are clear. Left lower infrahilar opacity which probably represents vasculature is present. There is no pneumothorax. No pleural effusion is appreciated. No acute bone abnormality. IMPRESSION: No acute cardiopulmonary process. [] Course & Med Decision Making Course & Med Decision Making Pertinent Labs and Imaging studies reviewed. (See chart for details) 1150: Position sitting for increasing lower extremity edema with some shortness of breath on exertion. Her exam is remarkable for 1+ lower extremity edema. We'll check cardiac enzymes, BNP, chest x-ray and EKG. Oxygen saturation was 98% on room air while lying in bed. 1420: Patient's workup is complete and is remarkable for mild elevation in her BNP. She has some protein in her urine along with what appears to be a urinary tract infection. We'll start her on antibiotics for her urinary tract infection. Her oxygen saturation has been 95% plus on room air throughout her stay. I spoke with Fannie with cardiology who recommends that the patient stay on her Lasix over the weekend and she will have an appointment on the at 1:[address] Webb. According to family the patient's Norvasc was cut in half one week ago. Dragon Disclaimer Dragon Disclaimer This electronic medical record was generated, in whole or in part, using a voice recognition dictation system. Departure Departure Impression: Primary Impression: Swelling of lower extremity Additional Impressions: UTI (urinary tract infection) Proteinuria Disposition: HOME, SELF-CARE Condition: STABLE Referrals: GALI HENSON MD You will follow up on September 22 at 1:30. Patient Instructions: Edema Scripts Ciprofloxacin Hcl (CIPROFLOXACIN HCL) 500 Mg Tablet 1 TAB PO BID, #14 TAB Prov: IRINA CRUZ DO 09/17/19 Problem Qualifiers IRINA CRUZ DO Sep 17, 2019 11:51
[2019-09-17 12:04] LABS: BASO # 0.1 x10^3/uL (0.0-0.2); BASO % 1 % (0-3); EOS # 0.2 x10^3/uL (0.0-0.7); EOS % 3 % (0-3); HEMATOCRIT 41.2 % (36.0-47.0); HEMOGLOBIN 13.4 g/dL (12.0-15.5); LYMPH # 1.9 x10^3/uL (1.0-4.8); LYMPH % 36 % (24-48); MEAN CORPUSCULAR HEMOGLOBIN 29 pg (25-35); MEAN CORPUSCULAR HGB CONC 33 g/dL (31-37); MEAN CORPUSCULAR VOLUME 90 fL (79-100); MONO # 0.3 x10^3/uL (0.0-1.1); MONO % 6 % (0-9); NEUT # 2.9 x10^3/uL (1.8-7.7); NEUT % 54 % (31-73); PLATELET COUNT 321 x10^3/uL (140-400); RED CELL DISTRIBUTION WIDTH 16.6 % (11.5-14.5); WHITE BLOOD COUNT 5.3 x10^3/uL (4.0-11.0)
[2019-09-17 12:21] LABS: CALCIUM 9.5 mg/dL (8.5-10.1); CREATININE 1.2 mg/dL (0.6-1.0); GFR 42.4; POTASSIUM 3.9 mmol/L (3.5-5.1)
--- NOTE | 2019-09-17 12:27 | EKG ---
[facility] [address] [place] [address] Test Date: 2019-09-17 Test Time: 11:53:03 Pat Name: XIANG COONEY Department: Room: Gender: F Manager Filter: : 1930 Requested By: IRINA CRUZ Order Number: [id number] Reading MD: Measurements Intervals [place] Rate: 70 P: CO: QRS: 5 QRSD: 70 T: 137 QT: 440 QTc: 478 Interpretive Statements IRREGULAR RHYTHM, NO P-WAVE FOUND QRS(T) CONTOUR ABNORMALITY CONSIDER ANTEROSEPTAL MYOCARDIAL DAMAGE ST & T ABNORMALITY, CONSIDER HIGH LATERAL ISCHEMIA OR LEFT VENTRICULAR STRAIN T ABNORMALITY IN ANTERIOR LEADS ABNORMAL ECG RI6.01 No previous ECG available for comparison
--- NOTE | 2019-09-17 12:38 | RAD ---
CHEST AP ONLY Clinical Indication: Lower extremity edema Comparison: None. Findings: Portable upright frontal view of the chest was obtained. The cardiomediastinal silhouette is normal. Lungs are clear. Left lower infrahilar opacity which probably represents vasculature is present. There is no pneumothorax. No pleural effusion is appreciated. No acute bone abnormality. IMPRESSION: No acute cardiopulmonary process. Electronically signed by: Isaac Ingram MD (09/17/2019 12:35 PM) [id number]
[2019-09-17 13:31] LABS: BILIRUBIN,URINE NEGATIVE (NEG); CLARITY,URINE CLEAR; COLOR,URINE YELLOW; NITRITE,URINE POSITIVE (NEG); PH,URINE 6.5; PROTEIN,URINE >=300 mg/dL (NEG-TRACE); UROBILINOGEN,URINE 0.2 mg/dL (0.2 mg/dL)
[2019-09-17 13:49] LABS: HYALINE CASTS, URINE MANY /HPF; SQUAMOUS EPITHELIAL CELL,UR MOD /LPF
[2019-09-17 13:51] LABS: BACTERIA,URINE MANY /HPF (0-FEW); WBC,URINE >40 /HPF (0-4)
[2019-09-17] MEDS ORDERED: CIPR500T PO (14:29)
[2019-09-17 14:39] VITALS: BP 149/62
== END 2019-09-17 14:52 | disposition home or self-care (01) ==
LOC: ER 11:30
DX: N39.0 Urinary tract infection, site not specified (principal); R80.9 Proteinuria, unspecified; Z87.891 Personal history of nicotine dependence; R60.0 Localized edema; Z88.2 Allergy status to sulfonamides; Z88.1 Allergy status to other antibiotic agents; Z88.6 Allergy status to analgesic agent; Z88.8 Allergy status to other drugs, medicaments and biological substances
CPT/HCPCS: 36415; 71045; 80048; 81001; 83880; 84484; 85025; 87086; 87186; 93005; 99285

== ENCOUNTER → 2020-02-01 | Outpatient (CLI) | payer MEDICARE ==
[~2020-02-01] MED LIST changes: -DICL100G18 TP; +DICL100G54 TP; +REGADENOSON 0.4 MG/5 ML DISP.SYRIN. IV ONE
--- NOTE | 2020-02-01 10:50 | CARD ---
MR#: [id number] Date of Study: 02/01/2020 Ordering Physician: GALI HENSON, Referring Physician: GALI HENSON, Tech: Deirdre Esteban [facility] APPROVED REPORT EXAM: Two-dimensional and M-mode echocardiogram with Doppler and color Doppler. Other Information Quality : Good Rhythm : Bradycardia INDICATION Murmur 2D DIMENSIONS RVDd2.5 (2.9-3.5cm)Left Atrium(2D)3.7 (1.6-4.0cm) IVSd1.0 (0.7-1.1cm)Aortic Root(2D)3.0 (2.0-3.7cm) LVDd4.7 (3.9-5.9cm)LVOT Diameter2.0 (1.8-2.4cm) PWd1.0 (0.7-1.1cm)LVDs3.7 (2.5-4.0cm) FS (%) 20.1 %SV41.5 ml LVEF(%)41.2 (>50%) Aortic Valve AoV Peak Robby.133.0cm/sAoV VTI31.7cm AO Peak GR.7.1mmHgLVOT Peak Robby.89.2cm/s AO Mean GR.4mmHgAVA (VMAX)2.04cm2 FRANCES (VTI)2.63et5VD P 1/2 Cpyk431cg Mitral Valve MV E Crulajfb53.6cm/sMV DECEL KMNP598sz MV A Cbfodjtv95.6cm/sE/A Ratio0.8 Tricuspid Valve TR P. Qahinjzv007gu/sRAP GDTLMEFI4clFm TR Peak Gr.62etTzMUIA75cyAk Pulmonary Vein S1 Btxpvzwc26.7cm/sD2 Fkezqzmg37.6cm/s LEFT VENTRICLE The left ventricle is normal size. There is normal left ventricular wall thickness. The Ejection Frac tion is 45-50%. Septal motion consistent with conduction abnormality. Transmitral Doppler flow patter n is Grade I-abnormal relaxation pattern. RIGHT VENTRICLE The right ventricle is normal size. The right ventricular systolic function is normal. ATRIA The left atrium is moderately dilated. The right atrium is moderately dilated. The interatrial septum is intact with no evidence for an atrial septal defect or patent foramen ovale as noted on 2-D or Do ppler imaging. AORTIC VALVE The aortic valve is mildly thickened but opens well. Doppler and Color Flow revealed mild aortic regu rgitation. There is no significant aortic valvular stenosis. MITRAL VALVE The mitral valve is calcified but opens well. There is no evidence of mitral valve prolapse. There is no mitral valve stenosis. Doppler and Color-flow revealed trace to mild mitral regurgitation. TRICUSPID VALVE The tricuspid valve is normal in structure and function. Doppler and Color Flow revealed trace to mil d tricuspid regurgitation.There is moderate pulmonary hypertension.The PA pressure was estimated at 4 2 mmHg. There is no tricuspid valve stenosis. PULMONIC VALVE Doppler and Color Flow revealed mild pulmonic valvular regurgitation. There is no pulmonic valvular s tenosis. GREAT VESSELS The aortic root is normal in size. The ascending aorta is normal in size. The IVC is normal in size a nd collapses >50% with inspiration. PERICARDIAL EFFUSION There is no evidence of significant pericardial effusion. Critical Notification Critical Value: No <Conclusion> The Ejection Fraction is 45-50%. Septal motion consistent with conduction abnormality. Doppler and Color Flow revealed trace to mild tricuspid regurgitation.There is moderate pulmonary hyp ertension.The PA pressure was estimated at 42 mmHg. Doppler and Color Flow revealed mild aortic regurgitation. Signed by : Alexander Crenshaw, Electronically Approved : 02/01/2020 10:49:44
--- NOTE | 2020-02-01 14:54 | RAD ---
MR#: [id number] Date of Study: 02/01/2020 Ordering Physician: GALI HENSON, Referring Physician: ALEJANDRA WHITING Tech: KAREEN Storey APPROVED REPORT Test Type: Pharmacological Stress Nurse/Tech: Jamila Chu R.N. Test Indications: dyspnea on exertion Cardiac History: htn Medications: See Electronic Medical Record Medical History: See Electronic Medical Record Resting ECG: SB Resting Heart Rate: 52 bpm Resting Blood Pressure: 190/62mmHg Pretest Chest Pain: No chest pain Nurse/Tech Notes S1S2, lungs CTA Consent: The procedure was explained to the patient in lay terms. Informed consent was witnessed. Augustus eout was entered into [employer]. History and Stress Test performed by RT Aly (R) (N) Pharm. Details Pharmacologic stress testing was performed using 0.4mg per 5ml of regadenoson given intravenously ove r 7-10 seconds. Stress Symptoms dizziness, h/a , stomach ache POST EXERCISE Reason for Termination: Infusion complete Max HR: 64 bpm Max Blood Pressure: 183/57mmHg Blood Pressure response to exercise: Normal blood pressure response during stress. Heart Rate response to exercise: wnl Chest Pain: No. Arrhythmia: Yes. Infrequent PAC's ST Change: No. INTERPRETATION Stress EKG Conclusion: No evidence of stress induced EKG change Imaging Protocol IMAGE PROTOCOL: Rest Tc-99m/stress Tc-99m 1 day Rest: Stress: Viability: Radiopharm.Tc99m PygapxasiVg47b Sestamibi Xtbr87lZt 30mCi Duration 15min. 10min. Img Date 02/01/2020 02/01/2020 Inj-Img Vznb38rnm. 60min. Rest Admin Site:IV - Left AntecubitalAdministrator:RT Kathy Lu)(N) Stress Admin Site: IV - Left AntecubitalAdministrator: KAREEN Storey STRESS DATA End Diast. Vol.93.0mlAv. Heart Rate60.0bpm End Syst. Vol.28.0mlCO Index BSA0.0L/min Myocardial Smll755.0gEject. Ijsjurtp25.0% Stress Rates Pk. Fill Rate2.39EDV/secLVtime Pk. Fill 259.20msec Pk. Empty Rate2.97ESV/secLVtime Pk. Nccyj412.16msec 07/31 Pk. Fill1.20EDV/sec Stress Scores Regional WT0.00Summed WT0.00 Regional WM0.00Summed WM6.00 The rest and stress images show normal perfusion, normal contraction and thickening. LV Perf. Quant 17 Seg. SSS2.00 17 Seg. SRS5.00 17 Seg. SDS0.00 Stress Defect Extent (% LAD)0.00Rest Defect Extent (% LAD)3.80Rev. Defect Extent (% LAD)0.00 Stress Defect Extent (% LCX) 11.30Rest Defect Extent (% LCX)41.30Rev. Defect Extent (% LCX)1.30 Stress Defect Extent (% RCA)0.00Rest Defect Extent (% RCA)0.00Rev. Defect Extent (% RCA)0.00 Stress Defect Extent (% QUETA)2.40Rest Defect Extent (% QUETA)9.80Rev. Defect Extent (% QUETA)0.20 Other Information Quality:Fair Risk Assessment: Low Risk Conclusion 1. No evidence of EKG changes with stress testing. 2. Normal perfusion at stress/rest. 3. Low risk study. 4. EF > 60%. Signed by : Alexander Crenshaw, Electronically Approved : 02/01/2020 14:53:31
== END | disposition home or self-care (01) ==
LOC: ECHO 07:32
PROVIDERS: ATTEND Internal Medicine Cardiovascular Disease
DX: I08.8 Other rheumatic multiple valve diseases (principal); I27.20 Pulmonary hypertension, unspecified; I10 Essential (primary) hypertension
CPT/HCPCS: 78452; 93017; 93306; A9500; J2785

== ENCOUNTER 2020-10-01 19:46 | Emergency (ER) | payer MEDICARE ==
[~2020-10-01] VITALS: Ht 152.4 cm; Wt 56.8 kg
[~2020-10-01 19:46] MED LIST changes: +AMLO-186 PO; +CIPR250T30 PO; -CIPR500T PO; +CIPR500T2 PO; +FAMO20TA5 PO; -LISI-338 PO; +LISI-517 PO; +LISI10TA16 PO; +POTA10TA12 PO; -REGADENOSON 0.4 MG/5 ML DISP.SYRIN. IV ONE; +SUCR1TAB PO
--- NOTE | 2020-10-01 20:23 | PHYS DOC ---
Past Medical History Past Medical History: Cancer, GERD, Hypertension, Other Additional Past Medical Histor: colon CA, primary amiliodosis, PACEMAKER 2019 Past Surgical History: Cancer Surgery, Hysterectomy, Knee Replacement Additional Past Surgical Histo: back,throat,COLON RESECTION, PACEMAKER L CHEST Smoking Status: Former Smoker Alcohol Use: None Drug Use: None Adult General Chief Complaint Chief Complaint: ABDOMINAL PAIN HPI HPI Patient is a 89 year old female with an extensive past medical history presenting emergency department for new onset of nausea vomiting and diarrhea. Patient is a noted history of colon resection after colon cancer. Patient states that over the last 4 days she has been having mild intermittent episodes of nonbloody nonbilious vomiting about four times over the last 4 days. During that time was also had to be due to gout episodes of watery diarrhea. Does complain of some abdominal pain but states that this started after she had episodes of vomiting. Denies any fever, chills, dizziness, chest pain or short ness of breath. Review of Systems Review of Systems Constitutional: Denies fever or chills [] Eyes: Denies change in visual acuity, redness, or eye pain [] HENT: Denies nasal congestion or sore throat [] Respiratory: Denies cough or shortness of breath [] Cardiovascular: No additional information not addressed in HPI [] GI: Denies abdominal pain, nausea, vomiting, bloody stools or diarrhea [] : Denies dysuria or hematuria [] Musculoskeletal: Denies back pain or joint pain [] Integument: Denies rash or skin lesions [] Neurologic: Denies headache, focal weakness or sensory changes [] Endocrine: Denies polyuria or polydipsia [] All other systems were reviewed and found to be within normal limits, except as documented in this note. Current Medications Current Medications Current Medications Medications (Trade) Dose Ordered Sig/Hayde Start Time Stop Time Status Last Admin Dose Admin Famotidine (Pepcid Vial) 20 mg 1X ONCE 10/01/20 20:30 10/01/20 20:31 DC 10/01/20 20:33 20 MG Ondansetron HCl (Zofran) 4 mg 1X ONCE 10/01/20 20:30 10/01/20 20:31 DC 10/01/20 20:33 4 MG Sodium Chloride 1,000 ml @ 1,000 mls/hr Q1H 10/01/20 20:30 10/01/20 21:29 10/01/20 20:33 1,000 MLS/HR Allergies Allergies Allergies Coded Allergies Type Severity Reaction Last Updated Verified Penicillins Allergy Intermediate 05/10/20 Yes Sulfa (Sulfonamide Antibiotics) Allergy Intermediate LIKE BEE BITTES. STINGING 11/11/14 Yes celecoxib Allergy Intermediate IRRITATION OF SKIN. FEEL LIKE BUGS ARE CRAWLING UNDER SKIN 11/11/14 Yes warfarin Allergy Intermediate 11/11/14 Yes cephalexin Adverse Reaction Intermediate SICK 11/11/14 Yes codeine Adverse Reaction Intermediate 11/11/14 Yes ibuprofen Adverse Reaction Intermediate SICK, NAUSEA 11/11/14 Yes iron Adverse Reaction Intermediate VOMITING, STOMACHE PAINS AND SOARS 11/11/14 Yes naproxen Adverse Reaction Intermediate MAKES PT REAL SICK 11/11/14 Yes rofecoxib Adverse Reaction Intermediate REAL SICK 11/11/14 Yes tramadol Adverse Reaction Intermediate DIZZYNESS, NASEA, AND VOMITING 11/11/14 Yes Physical Exam Physical Exam Constitutional: Well developed, well nourished, no acute distress, non-toxic appearance. [] HENT: Normocephalic, atraumatic, bilateral external ears normal, oropharynx moist, no oral exudates, nose normal. [] Eyes: PERRLA, EOMI, conjunctiva normal, no discharge. [] Neck: Normal range of motion, no tenderness, supple, no stridor. [] Cardiovascular:Heart rate regular rhythm, no murmur [] Lungs & Thorax: Bilateral breath sounds clear to auscultation [] Abdomen: Bowel sounds normal, soft, no tenderness, no masses, no pulsatile masses. [] Skin: Warm, dry, no erythema, no rash. [] Back: No tenderness, no CVA tenderness. [] Extremities: No tenderness, no cyanosis, no clubbing, ROM intact, no edema. [] Neurologic: Alert and oriented X 3, normal motor function, normal sensory function, no focal deficits noted. [] Psychologic: Affect normal, judgement normal, mood normal. [] Current Patient Data Vital Signs Vital Signs Date Time Temp Pulse Resp B/P (MAP) Pulse Ox O2 Delivery O2 Flow Rate FiO2 10/01/20 20:00 98.0 91 16 152/72 (98) 96 Room Air 98.0 Lab Values Laboratory Tests Test 10/01/20 20:00 10/01/20 20:17 Urine Collection Type Unknown Urine Color [place] Urine Clarity Clear Urine pH 5.5 (<5.0-8.0) Urine Specific [place] >=1.030 (1.000-1.030) Urine Protein >=300 mg/dL (NEG-TRACE) Urine Glucose (UA) Negative mg/dL (NEG) Urine Ketones (Stick) Trace mg/dL (NEG) Urine Blood Moderate (NEG) Urine Nitrite Negative (NEG) Urine Bilirubin Small (NEG) Urine Urobilinogen Dipstick 0.2 mg/dL (0.2 mg/dL) Urine Leukocyte Esterase Negative (NEG) Urine RBC 11-20 /HPF (0-2) Urine WBC 5-10 /HPF (0-4) Urine Squamous Epithelial Cells Mod /LPF Urine Bacteria Few /HPF (0-FEW) Urine Hyaline Casts Few /HPF Urine Mucus Mod /LPF White Blood Count 7.6 x10^3/uL (4.0-11.0) Red Blood Count 4.52 x10^6/uL (3.50-5.40) Hemoglobin 13.9 g/dL (12.0-15.5) Hematocrit 41.8 % (36.0-47.0) Mean Corpuscular Volume 93 fL (79-100) Mean Corpuscular Hemoglobin 31 pg (25-35) Mean Corpuscular Hemoglobin Concent 33 g/dL (31-37) Red Cell Distribution Width 16.3 % (11.5-14.5) H Platelet Count 246 x10^3/uL (140-400) Neutrophils (%) (Auto) 80 % (31-73) H Lymphocytes (%) (Auto) 13 % (24-48) L Monocytes (%) (Auto) 6 % (0-9) Eosinophils (%) (Auto) 0 % (0-3) Basophils (%) (Auto) 0 % (0-3) Neutrophils # (Auto) 6.1 x10^3/uL (1.8-7.7) Lymphocytes # (Auto) 1.0 x10^3/uL (1.0-4.8) Monocytes # (Auto) 0.5 x10^3/uL (0.0-1.1) Eosinophils # (Auto) 0.0 x10^3/uL (0.0-0.7) Basophils # (Auto) 0.0 x10^3/uL (0.0-0.2) Sodium Level 142 mmol/L (136-145) Potassium Level 4.1 mmol/L (3.5-5.1) Chloride Level 105 mmol/L (98-107) Carbon Dioxide Level 27 mmol/L (21-32) Anion Gap 10 (6-14) Blood Urea Nitrogen 23 mg/dL (7-20) H Creatinine 1.3 mg/dL (0.6-1.0) H Estimated GFR (Cockcroft-Gault) 38.6 BUN/Creatinine Ratio 18 (6-20) Glucose Level 148 mg/dL (70-99) H Calcium Level 10.0 mg/dL (8.5-10.1) Total Bilirubin 1.3 mg/dL (0.2-1.0) H Aspartate Amino Transferase (AST) 18 U/L (15-37) Alanine Aminotransferase (ALT) 24 U/L (14-59) Alkaline Phosphatase 71 U/L (46-116) Total Protein 6.2 g/dL (6.4-8.2) L Albumin 3.3 g/dL (3.4-5.0) L Albumin/Globulin Ratio 1.1 (1.0-1.7) Lipase 150 U/L (73-393) Laboratory Tests 10/01/20 20:17 Laboratory Tests 10/01/20 20:17 EKG EKG [] Radiology/Procedures Radiology/Procedures [] Course & Med Decision Making Course & Med Decision Making Pertinent Labs and Imaging studies reviewed. (See chart for details) 89F presented emergency department new onset of vomiting and diarrhea most consistent with an acute gastroenteritis. Probably most consistent with acute viral gastroenteritis. No bloody bowel movements raise concern for enteroinvasive colitis. Patient without any significant tenderness on exam. Afebrile vital signs stable on arrival. Will obtain labs to make sure there is no significant underlying pathology. At this time doubt appendicitis, mesenteric ischemia or cholecystitis or diverticulitis. Labs reviewed and unremarkable. This patient symptoms improved. At this time will discharge home with medications for symptomatic improvement Dragon Disclaimer Dragon Disclaimer This electronic medical record was generated, in whole or in part, using a voice recognition dictation system. Departure Departure Impression: Primary Impression: Acute colitis Disposition: 01 DC HOME SELF CARE/HOMELESS Condition: GOOD Referrals: CHAVA KNIGHT MD (PCP) Patient Instructions: Colitis Additional Instructions: EMERGENCY DEPARTMENT GENERAL DISCHARGE INSTRUCTIONS Thank you for coming to [facility] Emergency Department (ED) today and trusting us with you care. We trust that you had a positive experience in our Emergency Department. If you wish to speak to the department management, you may call the Director at [phone]. YOUR FOLLOW UP INSTRUCTIONS ARE FOLLOWS: 1. Do you have a private Doctor? If you do not have a private doctor, please ask for a resource list of physicians or clinics that may be able to assist you with follow up care. 2. The Emergency Physicain has interpreted your x-rays. The X-Ray specialist will also review them. If there is a change in the findings, you will be notified in 48 hours when at all possible. 3. A lab test or culture has been done, your results will be reviewed and you will be notified if you need a change in treatment. ADDITIONAL INSTRUCTIONS AND INFORMATION: 1. Your care today has been supervised by a physician who is specially trained in emergency care. Many problems require more than one evaluation for a complete diagnosis and treatment. We recommend that you schedule your follow up appointment as recommended to ensure complete treatment of you illness or injury. If you are unable to obtain follow up care and continue to have a problem, or if your condition worsens, we recommend that you return to the ED. 2. We are not able to safely determine your condition over the phone nor are we able to give sound medical advice over the phone. For these safety reasons, if you call for medical advice we will ask you to come to the ED for further evaluation. 3. If you have any questions regarding these discharge instructions please call the ED at [phone]. SAFETY INFORMATION: In the interest of safety, wellness, and injury prevention; we encourage you to wear your sealbelt, if you smoke; quite smoking, and we encourage family to use a protective helmet for bicycling and other sporting events that present an increased risk for head injury. IF YOUR SYMPTOMS WORSEN OR NEW SYMPTOMS DEVELOP, OR YOU HAVE CONCERNS ABOUT YOUR CONDITION; OR IF YOUR CONDITION WORSENS WHILE YOU ARE WAITING FOR YOUR FOLLOW UP APPOINTMENT; EITHER CONTACT YOUR PRIMARY CARE DOCTOR, THE PHYSICIAN WHOSE NAME AND NUMBER YOU WERE GIVEN, OR RETURN TO THE ED IMMEDIATELY. Scripts Loperamide Hcl (LOPERAMIDE) 2 Mg Capsule 2 MG PO DAILY PRN for DIARRHEA, #30 CAP Prov: FIDENCIO SOTO MD 10/01/20 Ondansetron Hcl (ZOFRAN) 4 Mg Tablet 1 TAB PO PRN Q6-8HRS for nausea, #12 TAB Prov: FIDENCIO SOTO MD 10/01/20 FIDENCIO SOTO MD Oct 01, 2020 20:23
[2020-10-01 20:27] LABS: BASO % 0 % (0-3); EOS % 0 % (0-3); HEMATOCRIT 41.8 % (36.0-47.0); HEMOGLOBIN 13.9 g/dL (12.0-15.5); LYMPH % 13 % (24-48); MEAN CORPUSCULAR HEMOGLOBIN 31 pg (25-35); MEAN CORPUSCULAR HGB CONC 33 g/dL (31-37); MEAN CORPUSCULAR VOLUME 93 fL (79-100); MONO # 0.5 x10^3/uL (0.0-1.1); MONO % 6 % (0-9); NEUT # 6.1 x10^3/uL (1.8-7.7); NEUT % 80 % (31-73); PLATELET COUNT 246 x10^3/uL (140-400); RED BLOOD COUNT 4.52 x10^6/uL (3.50-5.40); RED CELL DISTRIBUTION WIDTH 16.3 % (11.5-14.5); WHITE BLOOD COUNT 7.6 x10^3/uL (4.0-11.0)
[2020-10-01] MEDS ORDERED: IV NORMAL SALINE 1000ML BAG 1,000 ML IV SCH (20:30)
[2020-10-01] MEDS ORDERED: FAMOTIDINE 20 MG/2 ML VIAL IVP ONE (20:30)
[2020-10-01] MEDS ORDERED: ONDANSETRON PF 4 MG/2 ML VIAL. IVP ONE (20:30)
[2020-10-01 20:38] LABS: CREATININE 1.3 mg/dL (0.6-1.0); GFR 38.6; POTASSIUM 4.1 mmol/L (3.5-5.1)
[2020-10-01 20:44] LABS: ALBUMIN 3.3 g/dL (3.4-5.0); ALBUMIN/GLOBULIN RATIO 1.1 (1.0-1.7); TOTAL BILIRUBIN 1.3 mg/dL (0.2-1.0); TOTAL PROTEIN 6.2 g/dL (6.4-8.2)
[2020-10-01 20:47] LABS: BILIRUBIN,URINE SMALL (NEG); CLARITY,URINE CLEAR; COLOR,URINE AMBER; NITRITE,URINE NEGATIVE (NEG); PH,URINE 5.5 (<5.0-8.0); PROTEIN,URINE >=300 mg/dL (NEG-TRACE); UROBILINOGEN,URINE 0.2 mg/dL (0.2 mg/dL)
[2020-10-01 20:54] LABS: BACTERIA,URINE FEW /HPF (0-FEW); HYALINE CASTS, URINE FEW /HPF
--- NOTE | 2020-10-01 21:11 | RAD ---
Exam: Abdomen one view INDICATION: Abdominal pain TECHNIQUE: Supine view the abdomen Comparisons: None FINDINGS: Overall paucity bowel gas is noted. There are a few air-filled mildly dilated loops of small bowel in the left upper quadrant. There is osseous structures are unremarkable. IMPRESSION: Few mildly dilated loops of small bowel in the left upper quadrant which is nonspecific could relate to developing obstruction versus ileus. Continued radiographic follow-up is recommended. Electronically signed by: Ashish Casper MD (10/01/2020 9:09 PM) [facility]
[2020-10-01] MEDS ORDERED: ONDA4TAB7 PO (21:31)
[2020-10-01] MEDS ORDERED: LOPE2CAP PO (21:31)
[2020-10-01 21:33] VITALS: BP 140/74
[2020-10-04] MEDS ORDERED: CLON0.5T PO (01:34)
[2020-10-04] MEDS ORDERED: POTA10TA6 PO (01:34)
[2020-10-04] MEDS ORDERED: AMLO-186 PO (01:34)
[2020-10-04] MEDS ORDERED: LISI10TA16 PO (01:34)
[2020-10-04] MEDS ORDERED: POTA10TA12 PO (01:34)
[2020-10-04] MEDS ORDERED: PANT40TA77 PO (01:34)
[2020-10-04] MEDS ORDERED: FAMO20TA5 PO (01:34)
[2020-10-04] MEDS ORDERED: CITA20TA6 PO (01:34)
[2020-10-04] MEDS ORDERED: DICY10CA3 PO (01:34)
[2020-10-04] MEDS ORDERED: DIPH1TAB PO (01:34)
[2020-10-04] MEDS ORDERED: FURO40TA4 PO (01:34)
[2020-10-04] MEDS ORDERED: VITA25006 PO (01:34)
[2020-10-04] MEDS ORDERED: VITA400C37 PO (01:34)
[2020-10-04] MEDS ORDERED: COLE1TAB2 PO (01:34)
[2020-10-06] MEDS ORDERED: CEFD300C PO (10:32)
== END 2020-10-01 21:50 | disposition home or self-care (01) ==
LOC: ER 19:46
DX: K52.9 Noninfective gastroenteritis and colitis, unspecified (principal); K21.9 Gastro-esophageal reflux disease without esophagitis; I10 Essential (primary) hypertension; Z87.891 Personal history of nicotine dependence; Z95.0 Presence of cardiac pacemaker; Z90.710 Acquired absence of both cervix and uterus; Z88.0 Allergy status to penicillin; Z88.1 Allergy status to other antibiotic agents; Z88.2 Allergy status to sulfonamides; Z88.5 Allergy status to narcotic agent; Z88.6 Allergy status to analgesic agent; Z88.8 Allergy status to other drugs, medicaments and biological substances
CPT/HCPCS: 99284; J2405; J3490; J7030; 36415; 74018; 80053; 81001; 83690; 85025; 96361; 96374; 96375

== ENCOUNTER → 2020-12-05 | Outpatient (CLI) | payer MEDICARE ==
[2020-10-06 11:00] VITALS: BP 166/75
[~2020-12-05] MED LIST changes: +CEFD300C PO; +CLON0.5T PO; +COLE1TAB2 PO; +CONTRAST GIVEN. MC PRN; +DICY10CA3 PO; +DIPH1TAB PO; +FURO40TA4 PO; +IOHEXOL 300 MG/ML 100ML VIAL. IV ONE; +LOPE2CAP PO; +ONDA4TAB7 PO; +POTA10TA6 PO; +VITA25006 PO; +VITA400C37 PO
--- NOTE | 2020-12-05 13:45 | RAD ---
CT ENTEROGRAPHY History: Diarrhea, elevated fecal calprotectin. Comparison: CT abdomen pelvis 10/03/2020, 03/09/2018. Technique: CT enterography of the abdomen and pelvis with oral and intravenous contrast. Findings: Lower chest: Moderate hiatal hernia, partially visualized. Senescent reticulation in the lung bases. Cardiomegaly with partially visualized pacemaker. General abdomen: No ascites. No free air. Presacral, retroperitoneal soft tissue stranding posterior to the rectosigmoid anastomosis favored to represent posttreatment changes Liver : Normal in size and attenuation. No masses seen. Gallbladder/Biliary Tree: Normal gallbladder. No intrahepatic or extrahepatic biliary ductal dilatati on. Pancreas: Normal. Spleen: Normal in size and attenuation. Adrenal glands: Normal. Kidneys: No hydronephrosis or hydroureter. Inferior pole left renal cyst. Gastrointestinal: Moderate hiatal hernia, partially visualized. No gastric wall thickening. Interval resolution of dilated small bowel loops are CT from September 2020. Segment of jejunum with relative wall thickening in the left pelvis (for example axial image 141), similar in appearance compared to 2017. Normal appendix. No colonic wall thickening. Anastomosis at the rectosigmoid junction. 2.4 x 1. 7 cm fluid density at the anterior aspect of the distal sigmoid colon is similar appearance compared to 2018, may represent ovary or postoperative seroma. Lymph nodes: No lymphadenopathy. Vessels: Aorta iliac calcification without aneurysm. Pelvic Organs: Status post hysterectomy. Few foci of air in the bladder. Soft tissues: Unremarkable. Bones: Decreased osseous mineralization. Advanced degenerative changes of the lumbar spine. Impression: 1. Resolution of small bowel dilation seen on most recent exam, currently without evidence for obstr uction. Relative wall thickening of a loop of distal jejunum in the left pelvis appear similar to 201 8. 2. Postsurgical changes of the colon with a rectosigmoid anastomosis and chronic stranding of the pr esacral soft tissues, likely posttreatment changes. 3. Small foci of air in the bladder, correlate for intermittent catheterization versus gas-forming i nfection. 4. Incompletely visualized moderate hiatal hernia. ------ Exposure: One or more of the following individualized dose reduction techniques were utilized for thi s examination: 1. Automated exposure control 2. Adjustment of the mA and/or kV according to patient size 3. Use of iterative reconstruction technique. Electronically signed by: Kamaljit Villanueva MD (12/05/2020 1:42 PM) [facility]
== END ==
LOC: CT 10:02
PROVIDERS: ATTEND Internal Medicine Gastroenterology
DX: K44.9 Diaphragmatic hernia without obstruction or gangrene (principal); K56.41 Fecal impaction; R19.7 Diarrhea, unspecified; I51.7 Cardiomegaly
CPT/HCPCS: 74170; Q9967